=== PATIENT | male | born 1970 | race Caucasian/White ===

== ENCOUNTER → 2017-03-05 | Outpatient (CLI) | payer BC | END | disposition home or self-care (01) | LOC: C.LABSPEC 17:38 | PROVIDERS: ATTEND Podiatrist Primary Podiatric Medicine | DX: B35.1 Tinea unguium (principal) ==

== ENCOUNTER 2022-02-08 20:13 | Inpatient (IN) ==
--- NOTE | 2022-02-08 20:43 | Emergency Department Note ---
History of Present Illness General Chief complaint: Visual Disturbance Stated complaint: double vision Time Seen by Provider: 02/08/22 20:29 Source: patient History of Present Illness Provider complaint: Double vision Onset (ago): hour(s) Location: eyes, left and right Pain Consistency: + constant Quality: + other (Double vision with images vertically on top of each other) Relieved By: + other (Closing either eye) Associated symptoms: no chest pain, no cough, no fever/chills, no headaches, no nausea/vomiting, no shortness of breath or no weakness This is a 51-year-old male with a history of diabetes presenting with binocular diplopia starting at noon today. He states it is resolved when he closes either eye. He took a nap and woke at approximately 7 PM and he noticed the double vision was worse. He denies any other symptoms. He does have a history of Mnire's disease and has hearing loss from the right ear but denies any vertiginous symptoms. He has no ataxia. He has some trouble with his gait only because he is seeing double but otherwise denies disequilibrium. He has had no loss of visual downing. He denies any headache, fever, cough or cold symptoms, chest pain, shortness of breath, abdominal pain, vomiting, diarrhea or urinary symptoms. He has had no trouble with his speech, mentation or swallowing. He denies any prior history of stroke. Home Medications Medication Instructions Recorded Confirmed Type insulin glargine 100 unit/mL 35 unit SUBCUT HS 05/19/19 02/08/22 History subcutaneous solution (Lantus U-100 Insulin) pravastatin 40 mg tablet 40 mg PO HS 05/19/19 02/08/22 History insulin lispro 100 unit/mL 10 - 15 unit SUBCUT AC 02/08/22 02/08/22 History subcutaneous pen triamterene 37.5 1 cap PO QAM 02/08/22 02/08/22 History mg-hydrochlorothiazide 25 mg capsule Allergies Allergy/AdvReac Type Severity Reaction Status Date / Time Sulfa (Sulfonamide Allergy Hives Verified 02/08/22 20:45 Antibiotics) Past Med/Surg History Medical History (Updated 02/08/22 @ 21:59 by Harjinder Duarte MD) Asthma Chronic back pain Diabetes mellitus, type 2 GERD (gastroesophageal reflux disease) Hearing deficit Herniated disc Meniere's disease Vertigo LAST 2 MONTHS AGO Surgical History History of colonoscopy History of tooth extraction Family History Father Diabetes Brother Diabetes Social History Smoking Status: Never smoker Second Hand Exposure: No; Hx Alcohol Use: No Hx Substance Use: No Preferred Language: Slovenian Communication Ability: Effective Cloud Subject Matter Expert Required: No Beliefs That Will Affect Care: None Current Living Situation: Spouse Feels Safe at Home: Yes Assistive Devices: Glasses Review of Systems See HPI for pertinent positives & negatives. and A total of 10 systems reviewed and were otherwise negative Physical Exam Vital Signs Vital Signs - 24 hr 02/08/22 20:14 02/08/22 20:49 02/08/22 21:10 Temperature 36.8 C Temperature Source Temporal Artery Scan Pulse Rate 92 H 87 Pulse Rate [Apical] 86 Pulse Rate from SpO2 Sensor 87 Respiratory Rate 18 18 21 Respiratory Effort / Characteristics Non-Labored Spontaneous Non-Labored Spontaneous Respiratory Depth Normal Normal Respiratory Pattern Regular Blood Pressure 155/76 H Blood Pressure [Left Arm] 158/86 H Blood Pressure Mean 102 Blood Pressure Mean [Left Arm] 110 Blood Pressure Position Sitting Blood Pressure Position [Left Arm] Lying Pulse Oximetry 98 97 99 Oxygen Delivery Method Room Air Room Air Sepsis Recent Fever Within 48 Hours No Sepsis New/Unexplained Change in Mental Status No Sepsis Action Taken by Nursing No Action Required 02/08/22 21:20 02/08/22 21:30 Temperature Temperature Source Pulse Rate 82 85 Pulse Rate [Apical] Pulse Rate from SpO2 Sensor 82 87 Respiratory Rate 20 21 Respiratory Effort / Characteristics Respiratory Depth Respiratory Pattern Blood Pressure 140/85 Blood Pressure [Left Arm] Blood Pressure Mean 103 Blood Pressure Mean [Left Arm] Blood Pressure Position Blood Pressure Position [Left Arm] Pulse Oximetry 98 96 Oxygen Delivery Method Sepsis Recent Fever Within 48 Hours Sepsis New/Unexplained Change in Mental Status Sepsis Action Taken by Nursing Constitutional: Vital signs reviewed. Eyes: Pupils are equal round reactive to light. Conjunctiva are noninjected. Unremarkable nondilated funduscopic examination. ENT: Cochlear implant right side. Pharynx is clear without erythema or exudate. Mucous membranes are moist. Neck supple without meningeal signs. Respiratory: Clear to auscultation bilaterally. Breath sounds are equal bilaterally. Cardiovascular: Regular rate and rhythm. No rubs or gallops. GI: Soft, nondistended and nontender. Bowel sounds are present. Musculoskeletal: No peripheral edema. Integumentary: No cyanosis. or jaundice. Neurologic: The patient is awake and alert. Cranial nerves II-XII are intact. Motor is 5 out of 5 all extremities. Sensation is intact to light touch all extremities. Normal speech. No pronator drift. No limb ataxia. Normal gait. Normal visual downing tested by confrontation. Psychiatric: Normal affect. Not anxious appearing. Course Administered Medications Sodium Chloride (Nss) 500 mls @ 125 mls/hr IV .Q4H ISABELA Stop: 03/10/22 21:44 Last Admin: 02/08/22 21:38 Dose: 125 mls/hr Documented by: [id number] Discontinued Medications Aspirin (Aspirin 81 Mg Chew) 324 mg PO NOW STA Stop: 02/08/22 21:32 Last Admin: 02/08/22 21:37 Dose: 324 mg Documented by: [id number] Clopidogrel Bisulfate (Clopidogrel Bisulfate 75 Mg Tab) 75 mg PO NOW ONE Stop: 02/08/22 21:57 Last Admin: 02/08/22 22:00 Dose: 75 mg Documented by: [id number] Ioversol (Optiray 320 125ml) 120 ml IV ONCE ONE Stop: 02/08/22 21:01 Last Admin: 02/08/22 21:00 Dose: 120 ml Documented by: [id number] Medical Decision Making Differential Diagnosis Acute CVA, TIA, cranial nerve palsy, intracranial mass, intracranial hemorrhage Medical Records Attestation: I reviewed the patient's medical records. I did perform a limited focused review of portions of the patient's old chart on the electronic medical record. The patient has had no recent pertinent visits to this hospital. Home Medications Current Medication List: was personally reviewed by me Laboratory Data Attestation: I reviewed the patient's lab results. Result diagrams: 02/08/22 20:48 02/08/22 20:48 Lab Results 02/08/22 02/08/22 02/08/22 Range/Units 20:48 20:48 20:48 WBC 7.87 (4.8-10.8) K/uL RBC 4.89 (4.7-6.1) M/uL Hgb 15.8 (14.0-18.0) g/dL Hct 45.3 (42-52) % MCV 92.6 (80-100) fL MCH 32.3 (25-34) pg MCHC 34.9 (32-36) g/dL RDW Std Deviation 42.9 (36.4-46.3) fL RDW Coeff of Kylah 12.7 (11.5-14.5) % Plt Count 150 (130-400) K/uL MPV 11.9 H (7.4-10.4) fL Immature Gran % (Auto) 0.1 % Neut % (Auto) 47.5 % Lymph % (Auto) 44.9 % [place] % (Auto) 5.2 % Eos % (Auto) 2.0 % Baso % (Auto) 0.3 % Neut # (Auto) 3.74 (1.4-6.5) K/uL Lymph # (Auto) 3.53 H (1.2-3.4) K/uL [place] # (Auto) 0.41 (0.11-0.59) K/uL Eos # (Auto) 0.16 (0-0.5) K/uL Baso # (Auto) 0.02 (0-0.2) K/uL Immature Gran # (Auto) 0.01 (0.00-0.02) K/uL PT 10.1 (9.0-12.0) Seconds INR 0.9 (0.9-1.1) APTT 24.2 (21.0-31.0) Seconds PTT Ratio 0.9 Sodium 137 (136-145) mmol/L Potassium 3.4 L (3.5-5.1) mmol/L Chloride 99 (98-107) mmol/L Carbon Dioxide 32 (21-32) mmol/L Anion Gap 6 (3-11) BUN 23 (6-23) mg/dl Creatinine 1.77 H (0.6-1.4) mg/dl Est Cr Clr Drug Dosing 57.7 ml/min Est GFR ( Amer) 49.7 ml/min Est GFR (Non-Af Amer) 42.9 ml/min BUN/Creatinine Ratio 13.0 (10-20) Glucose 182 H (70-99(Fasting)) mg/dl POC Glucose (70-99) mg/dl Calcium 9.1 (8.5-10.1) mg/dl Magnesium 2.1 (1.7-2.4) mg/dl Total Bilirubin 0.7 (0.2-1.0) mg/dl AST 21 (13-39) U/L ALT 23 (7-52) U/L Alkaline Phosphatase 74 (34-104) U/L Troponin I High Sens 5.8 (0-20) pg/ml Total Protein 6.8 (6.0-8.3) gm/dl Albumin 4.5 (3.4-5.0) gm/dl Globulin 2.3 L (2.5-4.0) gm/dl Albumin/Globulin Ratio 2.0 (0.9-2) SARS-CoV-2, RNA, NAAT (NEGATIVE) Blood Type Antibody Screen 02/08/22 02/08/22 02/08/22 Range/Units 21:11 21:23 21:27 WBC (4.8-10.8) K/uL RBC (4.7-6.1) M/uL Hgb (14.0-18.0) g/dL Hct (42-52) % MCV (80-100) fL MCH (25-34) pg MCHC (32-36) g/dL RDW Std Deviation (36.4-46.3) fL RDW Coeff of Kylah (11.5-14.5) % Plt Count (130-400) K/uL MPV (7.4-10.4) fL Immature Gran % (Auto) % Neut % (Auto) % Lymph % (Auto) % [place] % (Auto) % Eos % (Auto) % Baso % (Auto) % Neut # (Auto) (1.4-6.5) K/uL Lymph # (Auto) (1.2-3.4) K/uL [place] # (Auto) (0.11-0.59) K/uL Eos # (Auto) (0-0.5) K/uL Baso # (Auto) (0-0.2) K/uL Immature Gran # (Auto) (0.00-0.02) K/uL PT (9.0-12.0) Seconds INR (0.9-1.1) APTT (21.0-31.0) Seconds PTT Ratio Sodium (136-145) mmol/L Potassium (3.5-5.1) mmol/L Chloride (98-107) mmol/L Carbon Dioxide (21-32) mmol/L Anion Gap (3-11) BUN (6-23) mg/dl Creatinine (0.6-1.4) mg/dl Est Cr Clr Drug Dosing ml/min Est GFR ( Amer) ml/min Est GFR (Non-Af Amer) ml/min BUN/Creatinine Ratio (10-20) Glucose (70-99(Fasting)) mg/dl POC Glucose 213 H (70-99) mg/dl Calcium (8.5-10.1) mg/dl Magnesium (1.7-2.4) mg/dl Total Bilirubin (0.2-1.0) mg/dl AST (13-39) U/L ALT (7-52) U/L Alkaline Phosphatase (34-104) U/L Troponin I High Sens (0-20) pg/ml Total Protein (6.0-8.3) gm/dl Albumin (3.4-5.0) gm/dl Globulin (2.5-4.0) gm/dl Albumin/Globulin Ratio (0.9-2) SARS-CoV-2, RNA, NAAT NEGATIVE (NEGATIVE) Blood Type O Positive Antibody Screen NEGATIVE Imaging Data Radiologist's Impression: Head CT 02/08/22 20:38 CT head/brain wo con CLINICAL HISTORY: 51 years-old Male with Stroke Like Symptoms. Acute strokelike symptoms with visual disturbances TECHNIQUE: Multiple axial CT images of the head were obtained without contrast. A dose lowering technique was utilized adhering to the principles of ALARA. COMPARISON: CTA head neck of same day, brain MRI 03/28/2014 FINDINGS: No acute intracranial hemorrhage, midline shift, intracranial mass, hydrocephalus, territorial ischemia or abnormal extra-axial collection. Streak artifact from a right-sided cochlear implant limits the study. Right-sided partial mastoidectomy. The calvarium is intact. Minimal mucosal thickening of the right maxillary sinus. Unremarkable soft tissues. IMPRESSION: 1. No acute intracranial abnormality identified. 2. Artifact from the patient's right-sided cochlear implant limits the study. ACT 112: Negative or not required by law. The above report was generated using voice recognition software. It may contain grammatical, syntax or spelling errors. Electronically signed by: Alfredo Fuentes M.D. 02/08/2022 9:07 PM Head CTA 02/08/22 20:38 CT angio neck with con, CT angio head w con CLINICAL HISTORY: 51 years-old Male with Stroke Like Symptoms. Acute strokelike symptoms COMPARISON STUDY: Head CT of same day TECHNIQUE: Following the IV administration of 120 mL of Optiray, CT angiogram of the head and neck was performed from the aortic arch to the skull apex. Images are reviewed in the axial, sagittal, and coronal planes. 3-D MIPS images are created and assessed. IV contrast was administered without complication. All measurements were calculated based on NASCET criteria. A dose lowering technique was utilized adhering to the principles of ALARA. CT DOSE: 1257.42 mGy.cm FINDINGS: Three-vessel morphology of the thoracic aortic arch. Patency of the innominate and imaged subclavian arteries. Study is mildly motion degraded. The common and internal carotid arteries are patent. The middle and anterior cerebral arteries are patent. The vertebral arteries, basilar and posterior cerebral arteries are widely patent. The cerebral venous sinuses are patent. There is no abnormal intracranial enhancement. Streak artifact from the patient's right-sided cochlear implant limits the study. Lung apices are clear. No pneumothorax. Mild polypoid mucosal thickening of the right maxillary sinus. Streak artifact from dental amalgam hardware. Degenerative changes of the imaged cervical spine. Right-sided partial mastoidectomy. IMPRESSION:Unremarkable CTA of the head and neck. ACT 112: Negative or not required by law. The above report was generated using voice recognition software. It may contain grammatical, syntax or spelling errors. Electronically signed by: Alfredo Fuentes M.D. 02/08/2022 9:15 PM Neck CTA 02/08/22 20:38 CT angio neck with con, CT angio head w con CLINICAL HISTORY: 51 years-old Male with Stroke Like Symptoms. Acute strokelike symptoms COMPARISON STUDY: Head CT of same day TECHNIQUE: Following the IV administration of 120 mL of Optiray, CT angiogram of the head and neck was performed from the aortic arch to the skull apex. Images are reviewed in the axial, sagittal, and coronal planes. 3-D MIPS images are created and assessed. IV contrast was administered without complication. All measurements were calculated based on NASCET criteria. A dose lowering technique was utilized adhering to the principles of ALARA. CT DOSE: 1257.42 mGy.cm FINDINGS: Three-vessel morphology of the thoracic aortic arch. Patency of the innominate and imaged subclavian arteries. Study is mildly motion degraded. The common and internal carotid arteries are patent. The middle and anterior cerebral arteries are patent. The vertebral arteries, basilar and posterior cerebral arteries are widely patent. The cerebral venous sinuses are patent. There is no abnormal intracranial enhancement. Streak artifact from the patient's right-sided cochlear implant limits the study. Lung apices are clear. No pneumothorax. Mild polypoid mucosal thickening of the right maxillary sinus. Streak artifact from dental amalgam hardware. Degenerative changes of the imaged cervical spine. Right-sided partial mastoidectomy. IMPRESSION:Unremarkable CTA of the head and neck. ACT 112: Negative or not required by law. The above report was generated using voice recognition software. It may contain grammatical, syntax or spelling errors. Electronically signed by: Alfredo Fuentes M.D. 02/08/2022 9:15 PM ECG Data Attestation: I personally reviewed and interpreted this ECG as follows: Indication: + other (Diplopia) Rate (beats per minute): 80 Rhythm: + normal sinus ECG [place]: + Normal ECG ST segments: no ST elevation ECG Findings: no PVCs MDM Narrative I did evaluate the patient as noted above. The patient is presenting with bilocular vertical diplopia. It started at noon today and got worse after he woke up from a nap. He is not an IV tPA candidate given the time course of events. I did, however, call a stroke alert. IV access was established. I did order a stat CT of the head and CT angiogram of the head and neck. I did review the images myself as well as the radiology report as described above. The angiograms are unremarkable. CT of the head does not show any acute process but it is somewhat limited due to streak artifact from his cochlear implant. I did place an order for continuous cardiac monitoring. The monitor showed normal sinus rhythm at a rate of 82 bpm. I did order and personally review the patient's 12-lead EKG as described above. He has no acute ischemic changes. I did order and review the patient's blood work as noted in the electronic medical record. CBC is unremarkable without leukocytosis or anemia. Electrolytes demonstrate a potassium of 3.4 but are otherwise unremarkable. His glucose is elevated at 182. LFTs are unremarkable. Creatinine is elevated at 1.77. I did discuss the test results with the patient. He states that his creatinine was last taken about a week ago and was normal. I did start him on normal saline IV. He denies having any urinary issues or flank pain. We are unable to reach the stroke neurologist at [place] in a timely fashion due to a large amount of stroke alerts at the same time. I therefore called Dr. Ho of neurology and discussed the case with her. She recommended the patient be treated with dual antiplatelet therapy and we obtain an MRI. I did order aspirin and Plavix for the patient. I did order an MRI. I did review the safety parameters for his cochlear implant based on the model number provided by his . I did fax him a copy of the parameters and the tech will make sure all the parameters are compatible with his implant so as not to damage it. I discuss case with Dr. Merino and the case liner. Impression & Plan Binocular vision disorder with diplopia, Elevated serum creatinine, Hyperglycemia Discharge Plan Visit Data Chief Complaint: Visual Disturbance Stated Complaint: double vision ED Provider: Harjinder Duarte Discharge Problem: Binocular vision disorder with diplopia, Elevated serum creatinine, Hyperglycemia Patient Disposition: Being Evaluated by Hospitalist Forms Stand Alone Forms: My [facility] Prescriptions Prescriptions: No Action Lantus U-100 Insulin 100 unit/mL Solution 35 unit SUBCUT HS RF: 0 pravastatin 40 mg Tablet 40 mg PO HS RF: 0 triamterene-hydrochlorothiazid 37.5-25 mg capsule 1 cap PO QAM RF: 0 insulin lispro 100 unit/mL insulin pen 10 - 15 unit SUBCUT AC RF: 0 Referrals Referrals: Tanja Jefferson MD [Primary Care Provider] -
[2022-02-08 21:00] LABS: Basophils # (auto) 0.02 K/uL (0-0.2); Basophils % (auto) 0.3 %; Eosinophils # (auto) 0.16 K/uL (0-0.5); Hematocrit (blood only) 45.3 % (42-52); Hemoglobin 15.8 g/dL (14.0-18.0); Immature Granulocytes # (auto) 0.01 K/uL (0.00-0.02); Immature Granulocytes % (auto) 0.1 %; Lymphocytes # (auto) 3.53 K/uL (1.2-3.4); Lymphocytes % (auto) 44.9 %; Mean Corpuscular Hemoglobin 32.3 pg (25-34); Mean Corpuscular Hgb Conc 34.9 g/dL (32-36); Mean Corpuscular Volume 92.6 fL (80-100); Mean Platelet Volume 11.9 fL (7.4-10.4); Monocytes # (auto) 0.41 K/uL (0.11-0.59); Monocytes % (auto) 5.2 %; Neutrophils # (auto) 3.74 K/uL (1.4-6.5); Neutrophils % (auto) 47.5 %; Platelet Count 150 K/uL (130-400); RDW Coefficient of Variation 12.7 % (11.5-14.5); RDW Standard Deviation 42.9 fL (36.4-46.3); Red Blood Count 4.89 M/uL (4.7-6.1); White Blood Count 7.87 K/uL (4.8-10.8)
[2022-02-08] MEDS ORDERED: OPTIRAY 320 125ml IV ONE (21:00)
--- NOTE | 2022-02-08 21:09 | CT Scan Report ---
CT head/brain wo con CLINICAL HISTORY: 51 years-old Male with Stroke Like Symptoms. Acute strokelike symptoms with visual disturbances TECHNIQUE: Multiple axial CT images of the head were obtained without contrast. A dose lowering tech nique was utilized adhering to the principles of ALARA. COMPARISON: CTA head neck of same day, brain MRI 03/28/2014 FINDINGS: No acute intracranial hemorrhage, midline shift, intracranial mass, hydrocephalus, territorial ischem ia or abnormal extra-axial collection. Streak artifact from a right-sided cochlear implant limits the study. Right-sided partial mastoidectomy. The calvarium is intact. Minimal mucosal thickening of the right maxillary sinus. Unremarkable soft tissues. IMPRESSION: 1. No acute intracranial abnormality identified. 2. Artifact from the patient's right-sided cochlear implant limits the study. ACT 112: Negative or not required by law. The above report was generated using voice recognition software. It may contain grammatical, syntax o r spelling errors. Electronically signed by: Alfredo Fuentes M.D. 02/08/2022 9:07 PM
[2022-02-08 21:10] LABS: INR 0.9 (0.9-1.1); Partial Thromboplastin Ratio 0.9; Partial Thromboplastin Time 24.2 Seconds (21.0-31.0); Prothrombin Time 10.1 Seconds (9.0-12.0)
--- NOTE | 2022-02-08 21:18 | CT Scan Report ---
CT angio neck with con, CT angio head w con CLINICAL HISTORY: 51 years-old Male with Stroke Like Symptoms. Acute strokelike symptoms COMPARISON STUDY: Head CT of same day TECHNIQUE: Following the IV administration of 120 mL of Optiray, CT angiogram of the head and neck wa s performed from the aortic arch to the skull apex. Images are reviewed in the axial, sagittal, and c oronal planes. 3-D MIPS images are created and assessed. IV contrast was administered without complic ation. All measurements were calculated based on NASCET criteria. A dose lowering technique was util ized adhering to the principles of ALARA. CT DOSE: 1257.42 mGy.cm FINDINGS: Three-vessel morphology of the thoracic aortic arch. Patency of the innominate and imaged subclavian arteries. Study is mildly motion degraded. The common and internal carotid arteries are patent. The m iddle and anterior cerebral arteries are patent. The vertebral arteries, basilar and posterior cerebr al arteries are widely patent. The cerebral venous sinuses are patent. There is no abnormal intracran ial enhancement. Streak artifact from the patient's right-sided cochlear implant limits the study. Lung apices are clear. No pneumothorax. Mild polypoid mucosal thickening of the right maxillary sinus . Streak artifact from dental amalgam hardware. Degenerative changes of the imaged cervical spine. Ri ght-sided partial mastoidectomy. IMPRESSION:Unremarkable CTA of the head and neck. ACT 112: Negative or not required by law. The above report was generated using voice recognition software. It may contain grammatical, syntax o r spelling errors. Electronically signed by: Alfredo Fuentes M.D. 02/08/2022 9:15 PM
[2022-02-08 21:21] LABS: Albumin Level 4.5 gm/dl (3.4-5.0); Bilirubin,Total 0.7 mg/dl (0.2-1.0); Calcium 9.1 mg/dl (8.5-10.1); Creatinine Clr Calc Pharmacy 57.7 ml/min; Est GFR (African American) 49.7 ml/min; Est GFR (Non-African American) 42.9 ml/min; Globulin 2.3 gm/dl (2.5-4.0); Magnesium 2.1 mg/dl (1.7-2.4); Potassium 3.4 mmol/L (3.5-5.1); Total Protein 6.8 gm/dl (6.0-8.3)
[2022-02-08 21:24] LABS: Troponin I High Sensitivity 5.8 pg/ml (0-20)
[2022-02-08] MEDS ORDERED: ASPIRIN 81 MG CHEW PO STA (21:31)
[2022-02-08] MEDS: SODIUM CHLORIDE 0.9% 500 ML IV SCH (21:38)
[2022-02-08] MEDS ORDERED: CLOPIDOGREL BISULFATE 75 MG TAB PO ONE (21:56)
--- NOTE | 2022-02-08 23:19 | History & Physical Report ---
Date of Service February 08, 2022 Assessment & Plan (1) Binocular vision disorder with diplopia: Plan: Binocular vertically displaced diplopia/vision loss left eye compared to right- Taking into account artifact due to cochlear implant on the right, imaging was negative for CVA. CT head without contrast, CTA head and neck, MRI brain were negative Pupils were equal round and reactive to light and accommodation, there was no Santana Mirian or reverse Santana Mirian pupil. Extraocular muscles were intact. Visual downing were normal. When each eye was covered individually, patient noted that his vision in his left eye was worse than his right, and notes that his vision was worse when he put his glasses on Vision in both eyes did improve significantly with pinhole testing, indicating at least in part of refractive error. Question the presence of central serous retinopathy or less likely corneal edema Anaplasmosis smear was negative, with antibody testing pending Lyme IgG testing was negative, but IgM returned equivocal findings Patient will be started on ceftriaxone 2 g IV daily, and Doxycycline 100 mg p.o. twice daily, with first dosing this evening. To be assessed by neurology in the a.m. Stroke without tPA order set completed, but suspect this is more likely an ocular process (2) Suspected Lyme disease: Plan: Empiric treatment as described above Western blot testing ordered and the results will need to be confirmed Empiric treatment for now as noted (3) Acute kidney injury: Plan: Creatinine 1.77 upon admission, with baseline per patient 1.1 He will be encouraged to take an oral liquids, and will be given IV fluids, NSS at 125 mils per hour, as well. We will retest laboratories in a.m. Hold triamterene HCTZ for now CK added, and normal at 183, making less likely diagnosis of rhabdomyolysis If creatinine remains elevated in a.m., would order imaging at that time (4) Diabetes mellitus, type 2: Plan: Glucose 182 upon admission For now, reduce Lantus from 35 to 20 units subcu at bedtime. Place on Accu-Cheks before meals and at bedtime with NovoLog coverage per scale Check hemoglobin A1c (5) Hyperlipidemia LDL goal <70: Plan: For now, increase pravastatin from 40 to 80 mg at bedtime (6) Meniere's disease: Plan: Mnire's disease status post cochlear implant in place- No noted issues (7) Cochlear implant in place: Plan: See above History of Present Illness Chief Complaint: The patient presents to the emergency department with complaint of vertical diplopia that began around noon today, with blurrier vision in the left eye, which is also new. Primary Care Provider: Tanja Jefferson MD The patient is a 51-year-old male with a past medical history including diabetes mellitus, hyperlipidemia and hypertension. He reports that his vision initially seemed blurry, and then later developed a binocular vertically displaced diplopia. He notes the vision in his left eye is worse and the image appears to be larger than the image in his right eye. He does have a cochlear implant in his right ear, associated with known Mnire's disease, in which he has had no problems with. He denies any loss of peripheral vision, and primarily report reports decreased vision when he look straight ahead in his left eye compared to the right. He has no other associated neurologic symptoms. He has not had the symptoms before. He denies any recent travels or sick exposures. He reports he has had some bites on his legs, but has not noted any ticks. Allergies Allergy/AdvReac Type Severity Reaction Status Date / Time Sulfa (Sulfonamide Allergy Hives Verified 02/08/22 20:45 Antibiotics) Home Medications Medication Instructions Recorded Confirmed Type insulin glargine 100 unit/mL 35 unit SUBCUT HS 05/19/19 02/08/22 History subcutaneous solution (Lantus U-100 Insulin) pravastatin 40 mg tablet 40 mg PO HS 05/19/19 02/08/22 History insulin lispro 100 unit/mL 10 - 15 unit SUBCUT AC 02/08/22 02/08/22 History subcutaneous pen triamterene 37.5 1 cap PO QAM 02/08/22 02/08/22 History mg-hydrochlorothiazide 25 mg capsule Past Med/Surg History Medical History (Updated 02/09/22 @ 03:56 by Gary Carnes MD) Asthma Chronic back pain Cochlear implant in place Diabetes mellitus, type 2 GERD (gastroesophageal reflux disease) Hearing deficit Herniated disc Hyperlipidemia LDL goal <70 Meniere's disease Vertigo LAST 2 MONTHS AGO Surgical History History of colonoscopy History of tooth extraction Family History Father Diabetes Brother Diabetes Social History Smoking Status: Never smoker Second Hand Exposure: No; Hx Alcohol Use: Yes Alcohol type: hard liquor Hx Substance Use: No Preferred Language: Tajik Communication Ability: Effective Television Anchor Required: No Beliefs That Will Affect Care: None Current Living Situation: Spouse Other Information That Helps Us Care for You: No Feels Safe at Home: Yes Safety Concerns: Feels Safe At This Time Assistive Devices: Glasses and Hearing Aid - Left Assistive Devices Comment: Choclear implant in right ear Review of Systems Review of Systems: The patient denies chest pain, palpitations, shortness of breath, dyspnea on exertion, cough, lower extremity swelling, sore throat, fevers, chills, sweats, weight change, fatigue, nausea, vomiting, diarrhea , constipation, abdominal pain, pelvic pain, blood in urine or stool, dysuria, urinary frequency or urgency, lightheadedness, dizziness, headache, memory loss, loss of consciousness, abnormal bruising or bleeding, imbalance, focal or generalized weakness, numbness or tingling in arms or legs, generalized arthralgias or myalgias, back or neck pain, or night sweats. The review of systems is otherwise negative other than for that already noted above, and at least 10 systems have been reviewed. Physical Exam Physical Exam: The patient is awake, alert and oriented 3, well developed and well nourished, normocephalic and atraumatic, lying in bed and in no acute distress. HEENT--PERRLA, negative Santana Mirian pupil. EOMI, mucous membranes and oropharynx dry. Neck--supple. No JVD. No bruits. Thyroid normal, trachea midline, no adenopathy. Heart--normal S1 and S2. No murmurs, rubs or gallops. Lungs--clear bilaterally, no respiratory distress, no accessory muscle use. Abdomen--normal bowel sounds and soft. Nontender. Nondistended, no hernias or m asses, no organomegaly. Extremities--no cyanosis or clubbing. No edema. There are good distal pulses b/l. Dermatologic--normal skin turgor, normal color, no abnormal lymph nodes, no rash. Neurologic--cranial nerves II through XII grossly intact. Ophthalmoscope exam shows normal sharp appearing disc margins, normal AV ratio, no hemorrhaging. Rheumatologic--normal range of motion. Psychiatric--normal affect. Results & Data Results & Data ([facility]) Vital Signs (Past 12 Hours) Vital Signs Temp Pulse Pulse Resp BP BP Pulse Ox 02/08/22 23:00 72 21 124/65 02/08/22 22:50 77 21 97 02/08/22 22:40 69 17 97 02/08/22 22:30 76 22 127/74 95 02/08/22 22:20 75 23 96 02/08/22 22:10 78 17 96 02/08/22 22:00 73 22 02/08/22 21:50 80 17 97 02/08/22 21:40 89 18 97 02/08/22 21:30 85 21 140/85 96 02/08/22 21:20 82 20 98 02/08/22 21:10 87 21 99 02/08/22 20:49 86 18 158/86 H 97 02/08/22 20:14 36.8 C 92 H 18 155/76 H 98 Laboratory Results Laboratory Results WBC 7.87 K/uL (4.8-10.8) 02/08/22 20:48 RBC 4.89 M/uL (4.7-6.1) 02/08/22 20:48 Hgb 15.8 g/dL (14.0-18.0) 02/08/22 20:48 Hct 45.3 % (42-52) 02/08/22 20:48 MCV 92.6 fL (80-100) 02/08/22 20:48 MCH 32.3 pg (25-34) 02/08/22 20:48 MCHC 34.9 g/dL (32-36) 02/08/22 20:48 RDW Std Deviation 42.9 fL (36.4-46.3) 02/08/22 20:48 RDW Coeff of Kylah 12.7 % (11.5-14.5) 02/08/22 20:48 Plt Count 150 K/uL (130-400) 02/08/22 20:48 MPV 11.9 fL (7.4-10.4) H 02/08/22 20:48 Immature Gran % (Auto) 0.1 % 02/08/22 20:48 Neut % (Auto) 47.5 % 02/08/22 20:48 Lymph % (Auto) 44.9 % 02/08/22 20:48 [place] % (Auto) 5.2 % 02/08/22 20:48 Eos % (Auto) 2.0 % 02/08/22 20:48 Baso % (Auto) 0.3 % 02/08/22 20:48 Neut # (Auto) 3.74 K/uL (1.4-6.5) 02/08/22 20:48 Lymph # (Auto) 3.53 K/uL (1.2-3.4) H 02/08/22 20:48 [place] # (Auto) 0.41 K/uL (0.11-0.59) 02/08/22 20:48 Eos # (Auto) 0.16 K/uL (0-0.5) 02/08/22 20:48 Baso # (Auto) 0.02 K/uL (0-0.2) 02/08/22 20:48 Immature Gran # (Auto) 0.01 K/uL (0.00-0.02) 02/08/22 20:48 PT 10.1 Seconds (9.0-12.0) 02/08/22 20:48 INR 0.9 (0.9-1.1) 02/08/22 20:48 APTT 24.2 Seconds (21.0-31.0) 02/08/22 20:48 PTT Ratio 0.9 02/08/22 20:48 Sodium 137 mmol/L (136-145) 02/08/22 20:48 Potassium 3.4 mmol/L (3.5-5.1) L 02/08/22 20:48 Chloride 99 mmol/L (98-107) 02/08/22 20:48 Carbon Dioxide 32 mmol/L (21-32) 02/08/22 20:48 Anion Gap 6 (3-11) 02/08/22 20:48 BUN 23 mg/dl (6-23) 02/08/22 20:48 Creatinine 1.77 mg/dl (0.6-1.4) H 02/08/22 20:48 Est Cr Clr Drug Dosing 57.7 ml/min 02/08/22 20:48 Est GFR ( Amer) 49.7 ml/min 02/08/22 20:48 Est GFR (Non-Af Amer) 42.9 ml/min 02/08/22 20:48 BUN/Creatinine Ratio 13.0 (10-20) 02/08/22 20:48 Glucose 182 mg/dl (70-99(Fasting)) H 02/08/22 20:48 POC Glucose 213 mg/dl (70-99) H 02/08/22 21:23 Calcium 9.1 mg/dl (8.5-10.1) 02/08/22 20:48 Magnesium 2.1 mg/dl (1.7-2.4) 02/08/22 20:48 Total Bilirubin 0.7 mg/dl (0.2-1.0) 02/08/22 20:48 AST 21 U/L (13-39) 02/08/22 20:48 ALT 23 U/L (7-52) 02/08/22 20:48 Alkaline Phosphatase 74 U/L (34-104) 02/08/22 20:48 Total Creatine Kinase 183 U/L (30-223) 02/08/22 20:48 Troponin I High Sens 5.8 pg/ml (0-20) 02/08/22 20:48 Total Protein 6.8 gm/dl (6.0-8.3) 02/08/22 20:48 Albumin 4.5 gm/dl (3.4-5.0) 02/08/22 20:48 Globulin 2.3 gm/dl (2.5-4.0) L 02/08/22 20:48 Albumin/Globulin Ratio 2.0 (0.9-2) 02/08/22 20:48 Anaplasma Smear See Comment 02/08/22 20:48 Lyme Disease IgG Ab Negative (Negative) 02/08/22 20:48 Lyme Disease IgM Ab Equivocal (Negative) A 02/08/22 20:48 SARS-CoV-2, RNA, NAAT NEGATIVE (NEGATIVE) 02/08/22 21:27 Blood Type O Positive 02/08/22 21:11 Antibody Screen NEGATIVE 02/08/22 21:[address] 02/08/22 20:38 CT head/brain wo con CLINICAL HISTORY: 51 years-old Male with Stroke Like Symptoms. Acute strokelike symptoms with visual disturbances TECHNIQUE: Multiple axial CT images of the head were obtained without contrast. A dose lowering technique was utilized adhering to the principles of ALARA. COMPARISON: CTA head neck of same day, brain MRI 03/28/2014 FINDINGS: No acute intracranial hemorrhage, midline shift, intracranial mass, hydrocephalus, territorial ischemia or abnormal extra-axial collection. Streak artifact from a right-sided cochlear implant limits the study. Right-sided partial mastoidectomy. The calvarium is intact. Minimal mucosal thickening of the right maxillary sinus. Unremarkable soft tissues. IMPRESSION: 1. No acute intracranial abnormality identified. 2. Artifact from the patient's right-sided cochlear implant limits the study. ACT 112: Negative or not required by law. The above report was generated using voice recognition software. It may contain grammatical, syntax or spelling errors. Electronically signed by: Alfredo Fuentes M.D. 02/08/2022 9:07 PM Head CTA 02/08/22 20:38 CT angio neck with con, CT angio head w con CLINICAL HISTORY: 51 years-old Male with Stroke Like Symptoms. Acute strokelike symptoms COMPARISON STUDY: Head CT of same day TECHNIQUE: Following the IV administration of 120 mL of Optiray, CT angiogram of the head and neck was performed from the aortic arch to the skull apex. Images are reviewed in the axial, sagittal, and coronal planes. 3-D MIPS images are created and assessed. IV contrast was administered without complication. All measurements were calculated based on NASCET criteria. A dose lowering technique was utilized adhering to the principles of ALARA. CT DOSE: 1257.42 mGy.cm FINDINGS: Three-vessel morphology of the thoracic aortic arch. Patency of the innominate and imaged subclavian arteries. Study is mildly motion degraded. The common and internal carotid arteries are patent. The middle and anterior cerebral arteries are patent. The vertebral arteries, basilar and posterior cerebral arteries are widely patent. The cerebral venous sinuses are patent. There is no abnormal intracranial enhancement. Streak artifact from the patient's right-sided cochlear implant limits the study. Lung apices are clear. No pneumothorax. Mild polypoid mucosal thickening of the right maxillary sinus. Streak artifact from dental amalgam hardware. Degenerative changes of the imaged cervical spine. Right-sided partial mastoidectomy. IMPRESSION:Unremarkable CTA of the head and neck. ACT 112: Negative or not required by law. The above report was generated using voice recognition software. It may contain grammatical, syntax or spelling errors. Electronically signed by: Alfredo Fuentes M.D. 02/08/2022 9:15 PM Neck CTA 02/08/22 20:38 CT angio neck with con, CT angio head w con CLINICAL HISTORY: 51 years-old Male with Stroke Like Symptoms. Acute strokelike symptoms COMPARISON STUDY: Head CT of same day TECHNIQUE: Following the IV administration of 120 mL of Optiray, CT angiogram of the head and neck was performed from the aortic arch to the skull apex. Images are reviewed in the axial, sagittal, and coronal planes. 3-D MIPS images are created and assessed. IV contrast was administered without complication. All measurements were calculated based on NASCET criteria. A dose lowering technique was utilized adhering to the principles of ALARA. CT DOSE: 1257.42 mGy.cm FINDINGS: Three-vessel morphology of the thoracic aortic arch. Patency of the innominate and imaged subclavian arteries. Study is mildly motion degraded. The common and internal carotid arteries are patent. The middle and anterior cerebral arteries are patent. The vertebral arteries, basilar and posterior cerebral arteries are widely patent. The cerebral venous sinuses are patent. There is no abnormal intracranial enhancement. Streak artifact from the patient's right-sided cochlear implant limits the study. Lung apices are clear. No pneumothorax. Mild polypoid mucosal thickening of the right maxillary sinus. Streak artifact from dental amalgam hardware. Degenerative changes of the imaged cervical spine. Right-sided partial mastoidectomy. IMPRESSION:Unremarkable CTA of the head and neck. ACT 112: Negative or not required by law. The above report was generated using voice recognition software. It may contain grammatical, syntax or spelling errors. Electronically signed by: Alfredo Fuentes M.D. 02/08/2022 9:15 PM Diagnostic Findings [facility] Patient: VIVI CABRAL (Male) : 66 Status: ER Date: 02/09/22 00:01 Room #: History: cochlear nucleus implant [id number], scanned in normal mode in transmit/receive head coil This is a 51-year-old male with a history of diabetes presenting with binocular diplopia starting at noon today. He states it is resolved when he closes either eye. He took a nap and woke at approximately 7 PM and he noticed the double vision was worse. He denies any other symptoms. [place] does have a history of Mnire's disease and has hearing loss from the right ear but denies any vertiginous symptoms. He has no ataxia. He has some trouble with his gait only because he is seeing double but otherwise denies disequilibrium. He has had no loss of visual downing. He denies any headache, fever, cough or cold symptoms, chest pain, shortness of breath, abdominal pain, vomiting, diarrhea or urinary symptoms. He has had no trouble with his speech, mentation or swallowing. He denies any prior history of stroke. Slices: 256 Priors: Tech: Junior Siegel @ [id number] Exams: MRI HEAD Contrast: IV Amt: 9 ml Gadavist, no adverse reactions Accession Numbers: [id number] Referring Physician: REFERRED SELF Preliminary Findings Only See Final Report For Complete Findings MRI HEAD : Comparison: CT head earlier same day Artifact from patient's cochlear implant severely limits evaluation, particularly on diffusion-weighted and T2* GRE images. Cannot exclude acute infarct on basis of this exam. No evidence of intracranial abnormality or abnormal enhancement, allowing for the artifact. Radiologist: Alek Hale MD Study ready at 00:08 and initial results transmitted at 00:31 *This report constitutes a preliminary interpretation only. Non-acute findings felt to be unrelated to the clinical presentation may not be discussed in this report. The study will be interpreted and a final report will be gene rated by the local Radiologist the following shift. To reach the [facility] radiology department call [phone]. If a discrepancy is found between the preliminary and final in terpretations of this study, please notify us via our Client Portal at [email or web address], under QA Exams. You can also fax this report with a description of the discrepancy, or include the final report, to our daytime fax number [phone]. If faxing, please indicate the severity of discrepancy using one of the following categories: [ ] 1 - Agree/Informational [ ] 2 - Unlikely to Affect Management [ ] 3 - Possible Eventual Change of Management [ ] 4 - Probable Immediate Change of Management For all other patient related information, please fax us at [phone]. [id number] Code Status & VTE Plan Code Status Full code VTE Prophylaxis Plan VTE Prophylaxis will be ordered: Yes PG Care Time/CCT Total # of Minutes Spent Total Time Spent with Patient: Total time spent is greater than 50% in coordination of care (as documented) at patient's floor/unit and/or counseling patient: Coding Level of Care Code 12802 Initial Inpt Care Lvl 3 Diagnoses Binocular vision disorder with diplopia H53.2 Acute kidney injury N17.9 Hyperlipidemia LDL goal <70 E78.5 Meniere's disease H81.[address] Z96.21 Diabetes mellitus, type 2 E11.9 Suspected Lyme disease R68.89
[2022-02-08] MEDS ORDERED: GADOBUTROL 10ML VIAL IV ONE (23:49)
[2022-02-09 00:20] LABS: Lyme Ab IgG w/WB Rflx Negative (Negative)
[2022-02-09 01:05] LABS: Lyme Ab IgM w/WB Rflx Equivocal (Negative)
[2022-02-09] MEDS ORDERED: DOXYCYCLINE HYCLATE 100 MG CAP PO STA (01:11)
[2022-02-09] MEDS ORDERED: GLUCOSE 10 TABS/TUBE PO PRN (01:26)
[2022-02-09] MEDS ORDERED: PHARMACIST DISCHARGE MED REC CONSULT PRN (01:26)
[2022-02-09] MEDS ORDERED: ACETAMINOPHEN 325 MG TAB PO PRN (01:26)
[2022-02-09] MEDS ORDERED: GLUCOSE 40% GEL 15 GM TUBE PO PRN (01:26)
[2022-02-09] MEDS ORDERED: ONDANSETRON INJ 2 MG/ML 2 ML VIAL IV PRN (01:26)
[2022-02-09] MEDS ORDERED: CARBOHYDRATES FOR HYPOGLYCEMIA PO PRN (01:26)
[2022-02-09] MEDS ORDERED: GLUCAGON FOR INJ 1 MG VIAL SQ PRN (01:26)
[2022-02-09] MEDS ORDERED: DEXTROSE 50% 50 ML SYRINGE IV PRN (01:26)
[2022-02-09] MEDS: SODIUM CHLORIDE 0.9% 500 ML IV SCH ×5 (01:40→19:44)
[2022-02-09] MEDS: cefTRIAXone SODIUM 2,000 MG in DEXTROSE 5% 50 ML IV SCH (01:46)
[2022-02-09] MEDS ORDERED: INSULIN GLARGINE SOLOSTAR 100 UNITS/ML 3 ML PEN SQ STA (02:29)
--- NOTE | 2022-02-09 06:24 | Magnetic Resonance Report ---
MRI OF THE BRAIN COMBO CLINICAL HISTORY: Diplopia. COMPARISON STUDY: CT of the brain dated 02/08/2022. TECHNIQUE: MRI of the brain was performed utilizing various T1 and T2-weighted sequences in the axial , sagittal, and coronal planes. Contrast-enhanced sequences were acquired following the administratio n of 9 cc of Gadavist. The examination is severely degraded by susceptibility artifact from metallic device overlying the right convexity. FINDINGS: Brain parenchyma: The brain parenchyma is normal in appearance. There is no hemorrhage or mass effect . There is no restricted diffusion identified typical for acute ischemia. Note that the right hemisph ere is complete obscured on the diffusion-weighted sequence. There is no evidence of enhancing mass l esion on the postcontrast images. Yip-white matter differentiation is preserved. No extra-axial flui d collection is seen. The cerebellar tonsils are normal in configuration. Ventricles, sulci, and cisterns: Normal in configuration. Pituitary and sella: Unremarkable. Intracranial vasculature: Normal flow voids are maintained at the skull base. Orbits: The bony orbits are grossly intact. Orbital contents are normal in appearance. Sinuses and mastoids: There is moderate mucosal thickening in the right maxillary antrum. The remaini ng paranasal sinuses are clear. The left mastoid air cells are well pneumatized. The right mastoid ai r cells cannot be evaluated. Calvarium: Unremarkable. Cervical cord: Partially visualized cervical spinal cord is normal in morphology and signal intensity . IMPRESSION: No acute intracranial abnormality is identified noting a severely degraded examination. A n acute infarct cannot be excluded on this examination. Clinical correlation will be required. ACT 112: Negative or not required by law. Electronically signed by: Duncan Thompson M.D. 02/09/2022 6:21 AM
[2022-02-09 07:41] LABS: Basophils # (auto) 0.01 K/uL (0-0.2); Basophils % (auto) 0.2 %; Eosinophils # (auto) 0.12 K/uL (0-0.5); Hematocrit (blood only) 41.7 % (42-52); Hemoglobin 14.6 g/dL (14.0-18.0); Immature Granulocytes # (auto) 0.01 K/uL (0.00-0.02); Immature Granulocytes % (auto) 0.2 %; Lymphocytes # (auto) 2.19 K/uL (1.2-3.4); Lymphocytes % (auto) 36.6 %; Mean Corpuscular Hemoglobin 32.2 pg (25-34); Mean Corpuscular Volume 92.1 fL (80-100); Monocytes % (auto) 6.7 %; Neutrophils # (auto) 3.26 K/uL (1.4-6.5); Neutrophils % (auto) 54.3 %; Platelet Count 145 K/uL (130-400); RDW Coefficient of Variation 12.8 % (11.5-14.5); RDW Standard Deviation 43.2 fL (36.4-46.3); Red Blood Count 4.53 M/uL (4.7-6.1); White Blood Count 5.99 K/uL (4.8-10.8)
[2022-02-09 07:57] LABS: Partial Thromboplastin Ratio 0.9; Prothrombin Time 10.4 Seconds (9.0-12.0)
[2022-02-09 08:10] LABS: Albumin Globulin Ratio 1.9 (0.9-2); Albumin Level 3.9 gm/dl (3.4-5.0); BUN Creatinine Ratio 17.9 (10-20); Bilirubin,Total 0.5 mg/dl (0.2-1.0); Calcium 8.4 mg/dl (8.5-10.1); Chol HDL Ratio 2.9 (0-5); Creatinine Clr Calc Pharmacy 76.2 ml/min; Est GFR (African American) 69.6 ml/min; Est GFR (Non-African American) 60.1 ml/min; Globulin 2.1 gm/dl (2.5-4.0)
[2022-02-09] MEDS: ASPIRIN 81 MG ECTAB PO SCH (08:22)
[2022-02-09] MEDS: INSULIN ASPART PER UNIT SC SCH ×4 (08:25→20:50)
[2022-02-09] MEDS ORDERED: DOXYCYCLINE HYCLATE 100 MG CAP PO SCH (09:00)
[2022-02-09] MEDS ORDERED: CLOPIDOGREL BISULFATE 75 MG TAB PO SCH (09:00)
--- NOTE | 2022-02-09 12:41 | XCELERA ---
[id number]
[2022-02-09 12:59] LABS: C Reactive Protein < 0.50 mg/dl (0-0.5); Creatine Kinase 133 U/L (30-223)
[2022-02-09] MEDS ORDERED: SODIUM CHLORIDE 0.9% 1000ML 1,000 ML IV SCH (20:00)
--- NOTE | 2022-02-09 20:36 | Hospitalist Progress Note ---
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 Specifically it appears he has subtle CN 4 impairment on the right. This would make sense as this is a common vasculopathic cranial neuropathy in the setting of cardiovascular risk factors such as diabetes, hyperlipidemia, etc. Turning his head to the left and looking left worsens his double vision which is c/w CN 4 impairment. He also mentioned that looking downward worsens the symptoms. Reading is quite difficulty right now - typically induces the double vision. Fortunately covering either eye extinguishes his symptoms. I don't see any other CN palsy/impairment or any other neurological finding on exam. 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 MRI brain noted to be negative for acute findings. CTA head/neck with stenosis, aneurysm or dissection. Echo without thrombus or obvious PFO. Tele without a.fib/flutter. With respect to blurry vision his high sugars could be contributing. I spoke with 2 separate ophthalmologists today by phone and his exam findings & clinical history were felt to be highly suggestive of CN 4 palsy. He will need to see ophthalmology within 1-2 days of discharge for full eye exam, prism cover test, etc. Dr Valdivia reported he could see Dr Zafar peace post-d/c. In meantime asa 81mg daily has been added for secondary prevention, continue statin agent, and will have [facility] [place] tomorrow for consult (they are not available today). Will d/c the ordered plavix (he was not taking any antiplatelet agent at home pre-admission). Pt already evaluated by PT/OT. No speech therapy required. (2) Suspected Lyme disease: Plan: Question of early stage Lyme (equivocal IgM, negative IgG). Typically with MANAGER [employer] lyme the IgG is positive, however. Lyme typically causes a Hatfield's palsy but theoretically could infect any cranial nerve. [id number] Lyme rarely impacts the other CN's outside of CN VII. With that side reasonable to continue IV rocephin while inpatient, send home with KEEGAN ramos, and await Lyme western blot & anaplasmosis. (3) Acute kidney injury: Plan: Creatinine 1.77 upon admission, with baseline per patient 1.1 Hold triamterene HCTZ Cr already improved with IV fluids overnight to 1.3 Etiology not full certain but suspect pre-renal (glucose was high upon admission lending itself to dehydration) Cont IV fluids; can reduce to 75cc/hr Obtain u/a to check for casts CPK wnl (4) Diabetes mellitus, type 2: Plan: a1c pending pt states last a1c was 7.1% increase lantus to 30 units HS tonight tighten carb ratio to 1:4 (he uses this ratio at home) tighten correction BSGs improved throughout the day (5) Hyperlipidemia LDL goal <70: Plan: Pravastatin increased from 40 to 80 mg at bedtime by admission MD Consider changing the pravastatin to crestor or lipitor will d/w patient (6) Meniere's disease: Plan: No noted issues at this time I don't believe there is any association of current symptoms with his Meniere's (7) Cochlear implant in place: Plan: noted Plan: DVT proph - if he stays beyond tomorrow will add chemical means updated at bedside questions answered hopeful for d/c home tomorrow following neurology eval and setting up post-d/c appts Admission and Anticipated Discharge Date Admission Date: February 08, 2022 Subjective tele stable overnight Dr Stephen continues to have intermittent vertical double vision was constant much of the evening last night, but since awakening it is now coming/going when he uses his glasses they don't correct his vision - vision continues to be blurry vision is worse L>R covering either eye extinguishes the double vision with turning the head to the left the double vision is provoked/worsened by such head turning to the right does not provoke the double vision denies vertigo, ataxia, sensory loss, focal motor weakness, facial droop, dysarthria/aphasia, dysphagia, facial sensory loss or impairment he has a mild, slight headache over the right forehead/behind the eye which is unusual for him (rarely gets headaches unless he is ill) denies any recent travel, sick contacts, or illnesses denies any fevers, chills, cough/congestion Review of Systems Review of Systems: gen - no anorexia cv - no cp pulm - no cough or dyspnea GI - no nausea or emesis or pain musculo - no myalgias Physical Exam Physical Exam: gen - WD, WN, no acute distress, sitting comfortably in bed face - no droop HENT - cochlear implant right side of head; MMM, no oral cavity lesions; tongue midline; nose clear eyes - PERRL, anicteric sclera; with extraocular movements - no obvious palsy noted; no ptosis; no nystagmus vertical or horizontal; ?slight decrease in full excursion of lateral rectus muscle on right but this is questionable neck - no lymph nodes or mass, supple heart - RRR, s1 s2, no murmur lungs - CTA b/l abd - soft NT ND BS+ ext - no edema, pulses 2+ b/l neuro - strength 5/5 x 4 exts; gait not tested; finger/nose/finger manuever without ataxia b/l hands; no sensory impairment to light touch x 4 exts; DTRs upper and lower extremities 2+ b/l CN - 3-12 initially seemed intact; Dr Stephen astutely recorded himself on his cell phone doing a head tilt (flexion/extension of head looking straight forward); with doing such there was finally a noticeable defect -- it appeared that looking straight that the right eye pupil was turned upwards and slightly outward (hypertropia and extorsion) suggestive of CN 4 palsy skin - no rash Results & Data Results & Data ([facility]) Vital Signs (Past 12 Hours) Vital Signs Temp Pulse Resp BP Pulse Ox 02/09/22 19:30 36.4 C L 63 16 126/65 98 02/09/22 16:25 36.7 C 18 119/77 98 02/09/22 11:41 36.3 C L 64 14 109/62 97 Laboratory Results Laboratory Results - last 24 hr 02/08/22 02/08/22 02/08/22 20:48 20:48 20:48 WBC 7.87 RBC 4.89 Hgb 15.8 Hct 45.3 MCV 92.6 MCH 32.3 MCHC 34.9 RDW Std Deviation 42.9 RDW Coeff of Kylah 12.7 Plt Count 150 MPV 11.9 H Immature Gran % (Auto) 0.1 Neut % (Auto) 47.5 Lymph % (Auto) 44.9 [place] % (Auto) 5.2 Eos % (Auto) 2.0 Baso % (Auto) 0.3 Neut # (Auto) 3.74 Lymph # (Auto) 3.53 H [place] # (Auto) 0.41 Eos # (Auto) 0.16 Baso # (Auto) 0.02 Immature Gran # (Auto) 0.01 ESR PT 10.1 INR 0.9 APTT 24.2 PTT Ratio 0.9 Sodium 137 Potassium 3.4 L Chloride 99 Carbon Dioxide 32 Anion Gap 6 BUN 23 Creatinine 1.77 H Est Cr Clr Drug Dosing 57.7 Est GFR ( Amer) 49.7 Est GFR (Non-Af Amer) 42.9 BUN/Creatinine Ratio 13.0 Glucose 182 H POC Glucose Estimat Average Glucose Hemoglobin A1c Calcium 9.1 Magnesium 2.1 Total Bilirubin 0.7 AST 21 ALT 23 Alkaline Phosphatase 74 Total Creatine Kinase Troponin I High Sens 5.8 C-Reactive Protein Total Protein 6.8 Albumin 4.5 Globulin 2.3 L Albumin/Globulin Ratio 2.0 Triglycerides Cholesterol LDL Cholesterol, Calc VLDL Cholesterol, Calc HDL Cholesterol Cholesterol/HDL Ratio TSH Acetylchol Rcpt Block Ab Acetylchol Rcpt Bind Ab Anaplasma Smear A. phagocytophilum DNA Lyme Disease IgG Ab Lyme IgG (Western Blot) Lyme IgG 18 kDa Band Lyme IgG 23 kDa Band Lyme IgG 28 kDa Band Lyme IgG 30 kDa Band Lyme IgG 39 kDa Band Lyme IgG 41 kDa Band Lyme IgG 45 kDa Band Lyme IgG 58 kDa Band Lyme IgG 66 kDa Band Lyme IgG 93 kDa Band Lyme IgM Ab (WB) Lyme Disease IgM Ab Lyme IgM 23 kDa Band Lyme IgM 39 kDa Band Lyme IgM 41 kDa Band SARS-CoV-2, RNA, NAAT Blood Type Antibody Screen 02/08/22 02/08/22 02/08/22 20:48 20:48 20:48 WBC RBC Hgb Hct MCV MCH MCHC RDW Std Deviation RDW Coeff of Kylah Plt Count MPV Immature Gran % (Auto) Neut % (Auto) Lymph % (Auto) [place] % (Auto) Eos % (Auto) Baso % (Auto) Neut # (Auto) Lymph # (Auto) [place] # (Auto) Eos # (Auto) Baso # (Auto) Immature Gran # (Auto) ESR PT INR APTT PTT Ratio Sodium Potassium Chloride Carbon Dioxide Anion Gap BUN Creatinine Est Cr Clr Drug Dosing Est GFR ( Amer) Est GFR (Non-Af Amer) BUN/Creatinine Ratio Glucose POC Glucose Estimat Average Glucose Hemoglobin A1c Calcium Magnesium Total Bilirubin AST ALT Alkaline Phosphatase Total Creatine Kinase 183 Troponin I High Sens C-Reactive Protein Total Protein Albumin Globulin Albumin/Globulin Ratio Triglycerides Cholesterol LDL Cholesterol, Calc VLDL Cholesterol, Calc HDL Cholesterol Cholesterol/HDL Ratio TSH Acetylchol Rcpt Block Ab Acetylchol Rcpt Bind Ab Anaplasma Smear See Comment A. phagocytophilum DNA Lyme Disease IgG Ab Negative Lyme IgG (Western Blot) Lyme IgG 18 kDa Band Lyme IgG 23 kDa Band Lyme IgG 28 kDa Band Lyme IgG 30 kDa Band Lyme IgG 39 kDa Band Lyme IgG 41 kDa Band Lyme IgG 45 kDa Band Lyme IgG 58 kDa Band Lyme IgG 66 kDa Band Lyme IgG 93 kDa Band Lyme IgM Ab (WB) Lyme Disease IgM Ab Equivocal A Lyme IgM 23 kDa Band Lyme IgM 39 kDa Band Lyme IgM 41 kDa Band SARS-CoV-2, RNA, NAAT Blood Type Antibody Screen 02/08/22 02/08/22 02/08/22 20:48 20:48 21:11 WBC RBC Hgb Hct MCV MCH MCHC RDW Std Deviation RDW Coeff of Kylah Plt Count MPV Immature Gran % (Auto) Neut % (Auto) Lymph % (Auto) [place] % (Auto) Eos % (Auto) Baso % (Auto) Neut # (Auto) Lymph # (Auto) [place] # (Auto) Eos # (Auto) Baso # (Auto) Immature Gran # (Auto) ESR PT INR APTT PTT Ratio Sodium Potassium Chloride Carbon Dioxide Anion Gap BUN Creatinine Est Cr Clr Drug Dosing Est GFR ( Amer) Est GFR (Non-Af Amer) BUN/Creatinine Ratio Glucose POC Glucose Estimat Average Glucose Hemoglobin A1c Calcium Magnesium Total Bilirubin AST ALT Alkaline Phosphatase Total Creatine Kinase Troponin I High Sens C-Reactive Protein Total Protein Albumin Globulin Albumin/Globulin Ratio Triglycerides Cholesterol LDL Cholesterol, Calc VLDL Cholesterol, Calc HDL Cholesterol Cholesterol/HDL Ratio TSH Acetylchol Rcpt Block Ab Acetylchol Rcpt Bind Ab Anaplasma Smear A. phagocytophilum DNA Pending Lyme Disease IgG Ab Lyme IgG (Western Blot) Pending Lyme IgG 18 kDa Band Pending Lyme IgG 23 kDa Band Pending Lyme IgG 28 kDa Band Pending Lyme IgG 30 kDa Band Pending Lyme IgG 39 kDa Band Pending Lyme IgG 41 kDa Band Pending Lyme IgG 45 kDa Band Pending Lyme IgG 58 kDa Band Pending Lyme IgG 66 kDa Band Pending Lyme IgG 93 kDa Band Pending Lyme IgM Ab (WB) Pending Lyme Disease IgM Ab Lyme IgM 23 kDa Band Pending Lyme IgM 39 kDa Band Pending Lyme IgM 41 kDa Band Pending SARS-CoV-2, RNA, NAAT Blood Type O Positive Antibody Screen NEGATIVE 02/08/22 02/08/22 02/09/22 21:23 21:27 07:16 WBC RBC Hgb Hct MCV MCH MCHC RDW Std Deviation RDW Coeff of Kylah Plt Count MPV Immature Gran % (Auto) Neut % (Auto) Lymph % (Auto) [place] % (Auto) Eos % (Auto) Baso % (Auto) Neut # (Auto) Lymph # (Auto) [place] # (Auto) Eos # (Auto) Baso # (Auto) Immature Gran # (Auto) ESR PT INR APTT PTT Ratio Sodium Potassium Chloride Carbon Dioxide Anion Gap BUN Creatinine Est Cr Clr Drug Dosing Est GFR ( Amer) Est GFR (Non-Af Amer) BUN/Creatinine Ratio Glucose POC Glucose 213 H 176 H Estimat Average Glucose Hemoglobin A1c Calcium Magnesium Total Bilirubin AST ALT Alkaline Phosphatase Total Creatine Kinase Troponin I High Sens C-Reactive Protein Total Protein Albumin Globulin Albumin/Globulin Ratio Triglycerides Cholesterol LDL Cholesterol, Calc VLDL Cholesterol, Calc HDL Cholesterol Cholesterol/HDL Ratio TSH Acetylchol Rcpt Block Ab Acetylchol Rcpt Bind Ab Anaplasma Smear A. phagocytophilum DNA Lyme Disease IgG Ab Lyme IgG (Western Blot) Lyme IgG 18 kDa Band Lyme IgG 23 kDa Band Lyme IgG 28 kDa Band Lyme IgG 30 kDa Band Lyme IgG 39 kDa Band Lyme IgG 41 kDa Band Lyme IgG 45 kDa Band Lyme IgG 58 kDa Band Lyme IgG 66 kDa Band Lyme IgG 93 kDa Band Lyme IgM Ab (WB) Lyme Disease IgM Ab Lyme IgM 23 kDa Band Lyme IgM 39 kDa Band Lyme IgM 41 kDa Band SARS-CoV-2, RNA, NAAT NEGATIVE Blood Type Antibody Screen 02/09/22 02/09/22 02/09/22 07:24 07:24 07:24 WBC 5.99 RBC 4.53 L Hgb 14.6 Hct 41.7 L MCV 92.1 MCH 32.2 MCHC 35.0 RDW Std Deviation 43.2 RDW Coeff of Kylah 12.8 Plt Count 145 MPV 12.0 H Immature Gran % (Auto) 0.2 Neut % (Auto) 54.3 Lymph % (Auto) 36.6 [place] % (Auto) 6.7 Eos % (Auto) 2.0 Baso % (Auto) 0.2 Neut # (Auto) 3.26 Lymph # (Auto) 2.19 [place] # (Auto) 0.40 Eos # (Auto) 0.12 Baso # (Auto) 0.01 Immature Gran # (Auto) 0.01 ESR PT 10.4 INR 1.0 APTT 25.0 PTT Ratio 0.9 Sodium Potassium Chloride Carbon Dioxide Anion Gap BUN Creatinine Est Cr Clr Drug Dosing Est GFR ( Amer) Est GFR (Non-Af Amer) BUN/Creatinine Ratio Glucose POC Glucose Estimat Average Glucose Hemoglobin A1c Calcium Magnesium Total Bilirubin AST ALT Alkaline Phosphatase Total Creatine Kinase Troponin I High Sens 5.1 C-Reactive Protein Total Protein Albumin Globulin Albumin/Globulin Ratio Triglycerides Cholesterol LDL Cholesterol, Calc VLDL Cholesterol, Calc HDL Cholesterol Cholesterol/HDL Ratio TSH Acetylchol Rcpt Block Ab Acetylchol Rcpt Bind Ab Anaplasma Smear A. phagocytophilum DNA Lyme Disease IgG Ab Lyme IgG (Western Blot) Lyme IgG 18 kDa Band Lyme IgG 23 kDa Band Lyme IgG 28 kDa Band Lyme IgG 30 kDa Band Lyme IgG 39 kDa Band Lyme IgG 41 kDa Band Lyme IgG 45 kDa Band Lyme IgG 58 kDa Band Lyme IgG 66 kDa Band Lyme IgG 93 kDa Band Lyme IgM Ab (WB) Lyme Disease IgM Ab Lyme IgM 23 kDa Band Lyme IgM 39 kDa Band Lyme IgM 41 kDa Band SARS-CoV-2, RNA, NAAT Blood Type Antibody Screen 02/09/22 02/09/22 02/09/22 07:24 07:24 07:24 WBC RBC Hgb Hct MCV MCH MCHC RDW Std Deviation RDW Coeff of Kylah Plt Count MPV Immature Gran % (Auto) Neut % (Auto) Lymph % (Auto) [place] % (Auto) Eos % (Auto) Baso % (Auto) Neut # (Auto) Lymph # (Auto) [place] # (Auto) Eos # (Auto) Baso # (Auto) Immature Gran # (Auto) ESR 5 PT INR APTT PTT Ratio Sodium 139 Potassium 4.0 Chloride 106 Carbon Dioxide 27 Anion Gap 6 BUN 24 H Creatinine 1.34 D Est Cr Clr Drug Dosing 76.2 Est GFR ( Amer) 69.6 Est GFR (Non-Af Amer) 60.1 BUN/Creatinine Ratio 17.9 Glucose 170 H POC Glucose Estimat Average Glucose Pending Hemoglobin A1c Pending Calcium 8.4 L Magnesium 2.0 Total Bilirubin 0.5 AST 17 ALT 19 Alkaline Phosphatase 64 Total Creatine Kinase Troponin I High Sens C-Reactive Protein Total Protein 6.0 Albumin 3.9 Globulin 2.1 L Albumin/Globulin Ratio 1.9 Triglycerides 102 Cholesterol 146 LDL Cholesterol, Calc 76 VLDL Cholesterol, Calc 20 HDL Cholesterol 50 Cholesterol/HDL Ratio 2.9 TSH Acetylchol Rcpt Block Ab Acetylchol Rcpt Bind Ab Anaplasma Smear A. phagocytophilum DNA Lyme Disease IgG Ab Lyme IgG (Western Blot) Lyme IgG 18 kDa Band Lyme IgG 23 kDa Band Lyme IgG 28 kDa Band Lyme IgG 30 kDa Band Lyme IgG 39 kDa Band Lyme IgG 41 kDa Band Lyme IgG 45 kDa Band Lyme IgG 58 kDa Band Lyme IgG 66 kDa Band Lyme IgG 93 kDa Band Lyme IgM Ab (WB) Lyme Disease IgM Ab Lyme IgM 23 kDa Band Lyme IgM 39 kDa Band Lyme IgM 41 kDa Band SARS-CoV-2, RNA, NAAT Blood Type Antibody Screen 02/09/22 02/09/22 02/09/22 11:21 12:22 12:22 WBC RBC Hgb Hct MCV MCH MCHC RDW Std Deviation RDW Coeff of Kylah Plt Count MPV Immature Gran % (Auto) Neut % (Auto) Lymph % (Auto) [place] % (Auto) Eos % (Auto) Baso % (Auto) Neut # (Auto) Lymph # (Auto) [place] # (Auto) Eos # (Auto) Baso # (Auto) Immature Gran # (Auto) ESR PT INR APTT PTT Ratio Sodium Potassium Chloride Carbon Dioxide Anion Gap BUN Creatinine Est Cr Clr Drug Dosing Est GFR ( Amer) Est GFR (Non-Af Amer) BUN/Creatinine Ratio Glucose POC Glucose 188 H Estimat Average Glucose Hemoglobin A1c Calcium Magnesium Total Bilirubin AST ALT Alkaline Phosphatase Total Creatine Kinase Troponin I High Sens 5.4 C-Reactive Protein Total Protein Albumin Globulin Albumin/Globulin Ratio Triglycerides Cholesterol LDL Cholesterol, Calc VLDL Cholesterol, Calc HDL Cholesterol Cholesterol/HDL Ratio TSH 1.836 Acetylchol Rcpt Block Ab Acetylchol Rcpt Bind Ab Anaplasma Smear A. phagocytophilum DNA Lyme Disease IgG Ab Lyme IgG (Western Blot) Lyme IgG 18 kDa Band Lyme IgG 23 kDa Band Lyme IgG 28 kDa Band Lyme IgG 30 kDa Band Lyme IgG 39 kDa Band Lyme IgG 41 kDa Band Lyme IgG 45 kDa Band Lyme IgG 58 kDa Band Lyme IgG 66 kDa Band Lyme IgG 93 kDa Band Lyme IgM Ab (WB) Lyme Disease IgM Ab Lyme IgM 23 kDa Band Lyme IgM 39 kDa Band Lyme IgM 41 kDa Band SARS-CoV-2, RNA, NAAT Blood Type Antibody Screen 02/09/22 02/09/22 02/09/22 12:22 12:22 16:22 WBC RBC Hgb Hct MCV MCH MCHC RDW Std Deviation RDW Coeff of Kylah Plt Count MPV Immature Gran % (Auto) Neut % (Auto) Lymph % (Auto) [place] % (Auto) Eos % (Auto) Baso % (Auto) Neut # (Auto) Lymph # (Auto) [place] # (Auto) Eos # (Auto) Baso # (Auto) Immature Gran # (Auto) ESR PT INR APTT PTT Ratio Sodium Potassium Chloride Carbon Dioxide Anion Gap BUN Creatinine Est Cr Clr Drug Dosing Est GFR ( Amer) Est GFR (Non-Af Amer) BUN/Creatinine Ratio Glucose POC Glucose 114 H Estimat Average Glucose Hemoglobin A1c Calcium Magnesium Total Bilirubin AST ALT Alkaline Phosphatase Total Creatine Kinase 133 Troponin I High Sens C-Reactive Protein < 0.50 Total Protein Albumin Globulin Albumin/Globulin Ratio Triglycerides Cholesterol LDL Cholesterol, Calc VLDL Cholesterol, Calc HDL Cholesterol Cholesterol/HDL Ratio TSH Acetylchol Rcpt Block Ab Pending Acetylchol Rcpt Bind Ab Pending Anaplasma Smear A. phagocytophilum DNA Lyme Disease IgG Ab Lyme IgG (Western Blot) Lyme IgG 18 kDa Band Lyme IgG 23 kDa Band Lyme IgG 28 kDa Band Lyme IgG 30 kDa Band Lyme IgG 39 kDa Band Lyme IgG 41 kDa Band Lyme IgG 45 kDa Band Lyme IgG 58 kDa Band Lyme IgG 66 kDa Band Lyme IgG 93 kDa Band Lyme IgM Ab (WB) Lyme Disease IgM Ab Lyme IgM 23 kDa Band Lyme IgM 39 kDa Band Lyme IgM 41 kDa Band SARS-CoV-2, RNA, NAAT Blood Type Antibody Screen 02/09/22 19:44 WBC RBC Hgb Hct MCV MCH MCHC RDW Std Deviation RDW Coeff of Kylah Plt Count MPV Immature Gran % (Auto) Neut % (Auto) Lymph % (Auto) [place] % (Auto) Eos % (Auto) Baso % (Auto) Neut # (Auto) Lymph # (Auto) [place] # (Auto) Eos # (Auto) Baso # (Auto) Immature Gran # (Auto) ESR PT INR APTT PTT Ratio Sodium Potassium Chloride Carbon Dioxide Anion Gap BUN Creatinine Est Cr Clr Drug Dosing Est GFR ( Amer) Est GFR (Non-Af Amer) BUN/Creatinine Ratio Glucose POC Glucose Estimat Average Glucose Hemoglobin A1c Calcium Magnesium Total Bilirubin AST ALT Alkaline Phosphatase Total Creatine Kinase Troponin I High Sens Pending C-Reactive Protein Total Protein Albumin Globulin Albumin/Globulin Ratio Triglycerides Cholesterol LDL Cholesterol, Calc VLDL Cholesterol, Calc HDL Cholesterol Cholesterol/HDL Ratio TSH Acetylchol Rcpt Block Ab Acetylchol Rcpt Bind Ab Anaplasma Smear A. phagocytophilum DNA Lyme Disease IgG Ab Lyme IgG (Western Blot) Lyme IgG 18 kDa Band Lyme IgG 23 kDa Band Lyme IgG 28 kDa Band Lyme IgG 30 kDa Band Lyme IgG 39 kDa Band Lyme IgG 41 kDa Band Lyme IgG 45 kDa Band Lyme IgG 58 kDa Band Lyme IgG 66 kDa Band Lyme IgG 93 kDa Band Lyme IgM Ab (WB) Lyme Disease IgM Ab Lyme IgM 23 kDa Band Lyme IgM 39 kDa Band Lyme IgM 41 kDa Band SARS-CoV-2, RNA, NAAT Blood Type Antibody Screen PG Care Time/CCT Total # of Minutes Spent Total Time Spent with Patient: Total time spent is greater than 50% in coordination of care (as documented) at patient's floor/unit and/or counseling patient: Coding Level of Care Code 13917 Subseq Hosp Care Lvl 3 Diagnoses Binocular vision disorder with diplopia H53.2 Suspected Lyme disease R68.89 Acute kidney injury N17.9 Diabetes mellitus, type 2 E11.9 Hyperlipidemia LDL goal <70 E78.5 Meniere's disease H81.[address] Z96.21
[2022-02-09] MEDS ORDERED: INSULIN GLARGINE SOLOSTAR 100 UNITS/ML 3 ML PEN SQ SCH ×3 (21:00)
[2022-02-09] MEDS ORDERED: PRAVASTATIN SOD 40 MG TAB PO SCH (21:00)
[2022-02-10] MEDS: cefTRIAXone SODIUM 2,000 MG in DEXTROSE 5% 50 ML IV SCH (02:17)
--- NOTE | 2022-02-10 06:44 | Electrocardiogram Report ---
Test Reason : Blood Pressure : / mmHG Vent. Rate : 080 BPM Atrial Rate : 080 BPM P-R Int : 196 ms QRS Dur : 088 ms QT Int : 360 ms P-R-T Axes : 064 055 059 degrees QTc Int : 415 ms Normal sinus rhythm Normal ECG No previous ECGs available Confirmed by Samuel Mota ([id number]) on 02/10/2022 6:44:17 AM Referred By: REFERRED SELF Confirmed By:Samuel Mota
[2022-02-10 07:47] LABS: BUN Creatinine Ratio 18.4 (10-20); Calcium 8.5 mg/dl (8.5-10.1); Creatinine Clr Calc Pharmacy 117.4 ml/min; Est GFR (African American) 114.2 ml/min; Est GFR (Non-African American) 98.5 ml/min; Potassium 3.9 mmol/L (3.5-5.1)
[2022-02-10 08:50] LABS: Estimated Average Glucose 154 mg/dl
[2022-02-10] MEDS: INSULIN ASPART PER UNIT SC SCH ×2 (08:55→12:47)
[2022-02-10] MEDS: ASPIRIN 81 MG ECTAB PO SCH (08:56)
--- NOTE | 2022-02-10 09:17 | Neurology Consultation ---
Date of Consultation February 10, 2022 Assessment & Plan (1) Right-sided fourth cranial nerve palsy: This patient appears to have a right sided 4th nerve palsy. I suspect an underlying vascular etiology, microvascular injury to the 4th nerve occurring in the context of insulin-dependent diabetes mellitus. His symptoms are stable to improved. Inflammatory markers are normal. Acetylcholine receptor antibodies are pending although I do not think his clinical presentation is consistent with myasthenia gravis. He does have an equivocal Lyme disease IgM antibody, Western blot is pending. Acute Lyme disease that is possible in spite of lack of other associated symptomatology. CT angiography adequately excludes an aneurysm. Furthermore, although the brain MRI sequences were distorted by his cochlear implant, many of the sequences adequately visualize the cavernous sinuses, midbrain, yvonne, and brainstem and do not reveal any obvious structural or inflammatory pathology. Unfortunately, the diffusion-weighted sequences were nondiagnostic. Nonetheless, his clinical presentation does not seem consistent with brainstem stroke given lack of other associated symptomatology. Agree with addition of aspirin 81 mg/day. Continue with ceftriaxone or other appropriate antimicrobial therapy until results of Western blot are available. Follow-up with results of acetylcholine receptor antibodies. Outpatient ophthalmology evaluation. Would consider prisms depending on extent of further improvement over the next few weeks. No further immediate recommendations at this time. Thank you for allowing me to participate in the care of this patient. 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 He complains of vertical double vision that improves with closing 1 eye or tilting his head to the left. The diplopia is worse with downgaze. He complains of mild right periorbital discomfort. Symptoms began 2 days ago, on February 08, in the evening and have been gradually improving although are still present this morning. He denies any vision loss, change in speech, significant headache, facial numbness, or weakness or numbness of the limbs. He denies any significant dizziness, vertigo, or difficulty walking. He denies a recent history of head trauma or signs or symptoms of infection such as fevers, chills, or myalgia. No known recent history of tick bite. Past medical history is notable for insulin-dependent diabetes mellitus for about 14 years, reportedly well controlled. Past medical history also notable for Mnire's disease for which she is prescribed triamterene hydrochlorothiazide and dyslipidemia for which she is prescribed pravastatin. He does not take aspirin or other blood thinners. No known history of significant cardiovascular disease. Patient exercises regularly, he does not abuse alcohol or tobacco products. He has never had similar symptoms in the past. Allergies Allergy/AdvReac Type Severity Reaction Status Date / Time Sulfa (Sulfonamide Allergy Hives Verified 02/08/22 20:45 Antibiotics) Home Medications Medication Instructions Recorded Confirmed Type insulin glargine 100 unit/mL 35 unit SUBCUT HS 05/19/19 02/08/22 History subcutaneous solution (Lantus U-100 Insulin) pravastatin 40 mg tablet 40 mg PO HS 05/19/19 02/08/22 History insulin lispro 100 unit/mL 10 - 15 unit SUBCUT AC 02/08/22 02/08/22 History subcutaneous pen triamterene 37.5 1 cap PO QAM 02/08/22 02/08/22 History mg-hydrochlorothiazide 25 mg capsule Patient History Medical History Asthma Chronic back pain Cochlear implant in place Diabetes mellitus, type 2 GERD (gastroesophageal reflux disease) Hearing deficit Herniated disc Hyperlipidemia LDL goal <70 Meniere's disease Vertigo LAST 2 MONTHS AGO Surgical History History of colonoscopy History of tooth extraction Family History Father Diabetes Brother Diabetes Social History Smoking Status: Never smoker Second Hand Exposure: No; Hx Alcohol Use: Yes Alcohol type: hard liquor Hx Substance Use: No Preferred Language: [place] Communication Ability: Effective [employer] Technical Director Required: No Beliefs That Will Affect Care: None Current Living Situation: Spouse Other Information That Helps Us Care for You: No Feels Safe at Home: Yes Safety Concerns: Feels Safe At This Time Assistive Devices: Glasses and Hearing Aid - Left Assistive Devices Comment: Choclear implant in right ear Review of Systems Constitutional: no fever and no chills Eyes: as per Subjective / HPI and + diplopia; no blind spots and no eye pain Ear, Nose, Mouth, Throat: + hearing loss; no ear pain and no dizziness Respiratory: no cough and no dyspnea Cardiovascular: no chest pain and no palpitations Gastrointestinal: no constipation and no diarrhea/loose stools Genitourinary: no urinary incontinence or no urinary urgency Musculoskeletal: no myalgia, no muscle weakness and no muscle atrophy Integumentary: no rash and no lesions Neurologic: as per Subjective / HPI; no gait abnormality, no paresthesia, no tremor(s), no seizure-like activity, no syncope, no headache(s), no confusion and no memory loss Psychiatric: no behavioral changes, no depression, no abnormal sleep pattern and no anxiety Hematologic / Lymphatic: no easy bruising and no lymphadenopathy Exam (Neuro) Constitutional: well developed and well nourished; no acute distress Eyes: normal visual downing by confrontation, PERRL and normal accommodation; + EOM not intact, no fundoscopic abnormality, no nystagmus and no papilledema Cardiovascular: Vessels: normal carotid upstroke; no carotid bruit Neurologic: Oriented to:: Person, Place and Time Memory: Short Term Intact and Remote Intact Attention: Span Intact and Concentration Intact Language: Naming Objects and Repeating Phrases Speech Fluency: negative Dysarthria Speech Aphasia: negative Aphasia Fund of Knowledge: Current Events, Past History and Vocabulary Cranial Nerves: Normal II (Visual downing full to confrontation, visual acuity normal), V (Facial sensation intact), VII (There is no facial droop or weakness), VIII (Hearing intact), IX, X (Palate elevates to midline), XI (Shoulder shrug intact) and XII (Tongue protrudes to midline); Abnorm III, IV, (Pupils equal round reactive to light and accommodation, eye movements normal) Motor Strength: Normal Lower Extremities and Normal Upper Extremities; negative Pronator Drift Motor Tone: Normal Lower Extremities and Normal Upper Extremities Muscle Bulk/Involuntary Movements: No Involuntary Movements; negative Muscle Atrophy Sensation: Light Touch Intact, Pain/Temperature Intact, Vibration Intact and Proprioception Intact Coordination: Normal; negative Limited Balance, Dysdiadochokinesia, Finger-Nose Abnormal or Heel-Cochran Abnormal Deep Tendon Reflexes: Rt Triceps: 2+, Lt Triceps: 2+, Rt Biceps: 2+, Lt Biceps: 2+, Rt Brachioradialis: 2+, Lt Brachioradialis: 2+, Rt Patellar: 2+, Lt Patellar: 2+, Rt Ankle: 2+ and Lt Ankle: 2+ Special Tests: negative Babinski Present Gait: Normal Station and Gait Details: Patient's vertical diplopia worsens with downgaze. The rotational or torsional diplopia worsens with head tilt to the right, and improves with head tilt to the left. There is no ptosis. There is no nystagmus. Results & Data ([facility]) Vital Signs (Past 12 Hours) Vital Signs Temp Pulse Resp BP Pulse Ox 02/10/22 07:15 36.6 C 78 18 125/69 95 02/10/22 03:39 36.9 C 57 L 16 139/62 96 02/09/22 23:42 36.8 C 73 18 123/70 95 Laboratory Results WBC 5.99, hemoglobin 14.6, hematocrit 41.7, MCV 92.1, platelet count 145, ESR 5, sodium 140, potassium 3.9, BUN 16, creatinine 0.87, glucose 158, [id number] glucose 181, hemoglobin A1c 7.0, calcium 8.5, total CK1 33, high-sensitivity troponin 4.4, C-reactive protein less than 0.50, triglycerides 102, cholesterol 146, LDL 76, VLDL 20, HDL 50, TSH 1.836, acetylcholine receptor antibodies (blocking and binding) pending, Lyme Western blot pending. Diagnostic Findings CT of the head negative for hemorrhage or acute process although there is artifact from patient's right-sided cochlear implant. CTA of the head and neck unremarkable, no aneurysm, occlusion, or dissection. Gadolinium enhanced brain MRI technically limited due to significant artifact from patient's right-sided cochlear implant. However, axial T1 and T2 sequences do not reveal any obvious pathology within the brainstem, yvonne, or midbrain. The diffusion-weighted sequences are nondiagnostic. Although the gadolinium enhanced sequences are distorted, there is no obvious evidence of abnormal postcontrast enhancement or abnormalities within the cavernous sinuses, midbrain, yvonne or brainstem. I reviewed the images as well as the radiologist interpretation of this test. An echocardiogram revealed normal left ventricular size and systolic function, ejection fraction 60 to 65%, no regional wall motion abnormalities, mild concentric left ventricular hypertrophy. No significant valvular abnormalities. No obvious right to left interatrial shunt following injection of agitated saline. Left atrial size normal. Right atrial size normal. Electrocardiogram revealed a normal sinus rhythm, 80 bpm. Coding Level of Care Code 67400 Initial Inpt Care Lvl 3 Diagnoses Right-sided fourth cranial nerve palsy H49.11
[2022-02-10 09:34] LABS: Appearance Urine Clear (Clear); Bilirubin Urine Negative (Negative); Blood Urine Negative (Negative); Color Urine Yellow; Glucose Urine UA 3+ (Negative); Ketones Urine Negative (Negative); Leukocyte Esterase Urine Negative (Negative); Nitrite Urine Negative (Negative); Protein Urine Negative (Negative); Urobilinogen Urine Negative (Negative)
[2022-02-10] MEDS ORDERED: STROKE PATIENT DISCHARGE STA (12:30)
--- NOTE | 2022-02-10 12:54 | Discharge Summary ---
Date of Service date of admission - February 08, 2022 date of discharge - February 10, 2022 Admission HPI Per Admitting Provider The patient is a 51-year-old male with a past medical history including diabetes mellitus, hyperlipidemia and hypertension. He reports that his vision initially seemed blurry, and then later developed a binocular vertically displaced diplopia. He notes the vision in his left eye is worse and the image appears to be larger than the image in his right eye. He does have a cochlear implant in his right ear, associated with known Mnire's disease, in which he has had no problems with. He denies any loss of peripheral vision, and primarily report reports decreased vision when he look straight ahead in his left eye compared to the right. He has no other associated neurologic symptoms. He has not had the symptoms before. He denies any recent travels or sick exposures. He reports he has had some bites on his legs, but has not noted any ticks. 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 Discharge Exam gen - WD, WN, no acute distress face - no droop HENT - cochlear implant right side of head; MMM, no oral cavity lesions; tongue midline; nose clear eyes - PERRL, anicteric sclera; with extraocular movements - RIGHT CN 4 palsy; no ptosis neck - no lymph nodes or mass, supple heart - RRR, s1 s2, no murmur lungs - CTA b/l abd - soft NT ND BS+ ext - no edema, pulses 2+ b/l neuro - strength 5/5 x 4 exts; finger/nose/finger without ataxia b/l hands; no sensory impairment to light touch x 4 exts; DTRs upper and lower extremities 2+ b/l CN - 3-12 intact except there is evidence of right-sided CN 4 palsy -- looking straight ahead shows a right pupil that is turned upwards and slightly outward (hypertropia and extorsion) skin - no rash Discharge Data Allergies Allergy/AdvReac Type Severity Reaction Status Date / Time Sulfa (Sulfonamide Allergy Hives Verified 02/08/22 20:45 Antibiotics) Consultations [facility] Neurology - Jonas Villegas MD PT, OT Speech therapy Procedures Performed Echocardiogram - * EF 60-65% * normal valve function * mild LVH * no PFO/shunt Ordered Studies Head CT 02/08/22 20:38 CT head/brain wo con CLINICAL HISTORY: 51 years-old Male with Stroke Like Symptoms. Acute strokelike symptoms with visual disturbances TECHNIQUE: Multiple axial CT images of the head were obtained without contrast. A dose lowering technique was utilized adhering to the principles of ALARA. COMPARISON: CTA head neck of same day, brain MRI 03/28/2014 FINDINGS: No acute intracranial hemorrhage, midline shift, intracranial mass, hydrocephalus, territorial ischemia or abnormal extra-axial collection. Streak artifact from a right-sided cochlear implant limits the study. Right-sided partial mastoidectomy. The calvarium is intact. Minimal mucosal thickening of the right maxillary sinus. Unremarkable soft tissues. IMPRESSION: 1. No acute intracranial abnormality identified. 2. Artifact from the patient's right-sided cochlear implant limits the study. ACT 112: Negative or not required by law. The above report was generated using voice recognition software. It may contain grammatical, syntax or spelling errors. Electronically signed by: Alfredo Fuentes M.D. 02/08/2022 9:07 PM Head CTA 02/08/22 20:38 CT angio neck with con, CT angio head w con CLINICAL HISTORY: 51 years-old Male with Stroke Like Symptoms. Acute strokelike symptoms COMPARISON STUDY: Head CT of same day TECHNIQUE: Following the IV administration of 120 mL of Optiray, CT angiogram of the head and neck was performed from the aortic arch to the skull apex. Images are reviewed in the axial, sagittal, and coronal planes. 3-D MIPS images are created and assessed. IV contrast was administered without complication. All measurements were calculated based on NASCET criteria. A dose lowering tech nique was utilized adhering to the principles of ALARA. CT DOSE: 1257.42 mGy.cm FINDINGS: Three-vessel morphology of the thoracic aortic arch. Patency of the innominate and imaged subclavian arteries. Study is mildly motion degraded. The common and internal carotid arteries are patent. The middle and anterior cerebral arteries are patent. The vertebral arteries, basilar and posterior cerebral arteries are widely patent. The cerebral venous sinuses are patent. There is no abnormal intracranial enhancement. Streak artifact from the patient's right-sided cochlear implant limits the study. Lung apices are clear. No pneumothorax. Mild polypoid mucosal thickening of the right maxillary sinus. Streak artifact from dental amalgam hardware. Degenerative changes of the imaged cervical spine. Right-sided partial mastoidectomy. IMPRESSION:Unremarkable CTA of the head and neck. ACT 112: Negative or not required by law. The above report was generated using voice recognition software. It may contain grammatical, syntax or spelling errors. Electronically signed by: Alfredo Fuentes M.D. 02/08/2022 9:15 PM Neck CTA 02/08/22 20:38 CT angio neck with con, CT angio head w con CLINICAL HISTORY: 51 years-old Male with Stroke Like Symptoms. Acute strokelike symptoms COMPARISON STUDY: Head CT of same day TECHNIQUE: Following the IV administration of 120 mL of Optiray, CT angiogram of the head and neck was performed from the aortic arch to the skull apex. Images are reviewed in the axial, sagittal, and coronal planes. 3-D MIPS images are created and assessed. IV contrast was administered without complication. All measurements were calculated based on NASCET criteria. A dose lowering technique was utilized adhering to the principles of ALARA. CT DOSE: 1257.42 mGy.cm FINDINGS: Three-vessel morphology of the thoracic aortic arch. Patency of the innominate and imaged subclavian arteries. Study is mildly motion degraded. The common and internal carotid arteries are patent. The middle and anterior cerebral arteries are patent. The vertebral arteries, basilar and posterior cerebral arteries are widely patent. The cerebral venous sinuses are patent. There is no abnormal intracranial enhancement. Streak artifact from the patient's right-sided cochlear implant limits the study. Lung apices are clear. No pneumothorax. Mild polypoid mucosal thickening of the right maxillary sinus. Streak artifact from dental amalgam hardware. Degenerative changes of the imaged cervical spine. Right-sided partial mastoidectomy. IMPRESSION:Unremarkable CTA of the head and neck. ACT 112: Negative or not required by law. The above report was generated using voice recognition software. It may contain grammatical, syntax or spelling errors. Electronically signed by: Alfredo Fuentes M.D. 02/08/2022 9:15 PM Brain MRI 02/08/22 21:31 MRI OF THE BRAIN COMBO CLINICAL HISTORY: Diplopia. COMPARISON STUDY: CT of the brain dated 02/08/2022. TECHNIQUE: MRI of the brain was performed utilizing various T1 and T2-weighted sequences in the axial, sagittal, and coronal planes. Contrast-enhanced sequences were acquired following the administration of 9 cc of Gadavist. The examination is severely degraded by susceptibility artifact from metallic device overlying the right convexity. FINDINGS: Brain parenchyma: The brain parenchyma is normal in appearance. There is no hemorrhage or mass effect. There is no restricted diffusion identified typical for acute ischemia. Note that the right hemisphere is complete obscured on the diffusion-weighted sequence. There is no evidence of enhancing mass lesion on the postcontrast images. Yip-white matter differentiation is preserved. No ext ra-axial fluid collection is seen. The cerebellar tonsils are normal in configuration. Ventricles, sulci, and cisterns: Normal in configuration. Pituitary and sella: Unremarkable. Intracranial vasculature: Normal flow voids are maintained at the skull base. Orbits: The bony orbits are grossly intact. Orbital contents are normal in appearance. Sinuses and mastoids: There is moderate mucosal thickening in the right maxillary antrum. The remaining paranasal sinuses are clear. The left mastoid air cells are well pneumatized. The right mastoid air cells cannot be evaluated. Calvarium: Unremarkable. Cervical cord: Partially visualized cervical spinal cord is normal in morphology and signal intensity. IMPRESSION: No acute intracranial abnormality is identified noting a severely degraded examination. An acute infarct cannot be excluded on this examination. Clinical correlation will be required. ACT 112: Negative or not required by law. Electronically signed by: Duncan Thompson M.D. 02/09/2022 6:21 AM Hospital Course (1) Right-sided fourth cranial nerve palsy: As the patient's hospitalization ensued it became clear that the patient's vertical double vision was due to a right-sided cranial nerve 4 palsy. This cranial neuropathy was likely due to a small vessel stroke in the setting of long-standing diabetes, hyperlipidemia, etc. Although MRI brain was negative his clinical picture was consistent with a microvascular event. Ophthalmology (via verbal communication) also suspected a 4th cranial nerve palsy. Additional stroke work-up including CTA head/neck, telemetry, and echocardiogram were normal. Specifically, CTAs did NOT show stenosis, aneurysm, or dissection, echo did not reveal a thrombus or PFO, and no a.fib was seen on telemetry. Sed rate/crp were wnl. CPK was wnl. Work-up for myasthenia gravis with acetylcholine receptor antibody testing was dispatched prior to discharge; however, myasthenia gravis was not suspected. Aspirin 81mg daily was added for secondary prevention. Lipid profile showed LDL of 76. Although the patient takes pravastatin 40mg daily he will consider changing to evidence-based therapy with lipitor or crestor. He plans to discuss this with his PCP. HbA1C was 7%, and blood pressures were well-controlled during the hospitalization. He was cleared by PT/OT for home with his family. 24-hours post-discharge the patient will follow-up with Dr Jonel Valdivia, ophthalmology, for a full evaluation. He will likely need a prism cover test, etc. Patient was instructed not to drive until cleared by ophthalmology and/or his PCP. The patient had an equivocal IgM lyme screening test. IgG was negative. Although not typical for Lyme it is theoretically possible that Lyme could have caused the 4th nerve palsy. As a precautionary measure he received IV rocephin while here, and was transitioned to oral doxycycline at discharge. Lyme Western blot was pending at time of discharge home. If Western blot returns negative he can stop the doxycycline. (2) Binocular vision disorder with diplopia: Vertical diplopia 2nd to right-sided cranial nerve 4 palsy. 2nd to microvascular stroke. See #1 above. MRI brain negative for acute findings/stroke. CTA head/neck without stenosis, aneurysm or dissection. Echo without thrombus or obvious PFO. Tele without a.fib/flutter. (3) Suspected Lyme disease: Question of early stage Lyme (equivocal IgM, negative IgG). Typically with PIECE JOBBER lyme the IgG is positive, however. Lyme typically causes a Hatfield's palsy but theoretically could infect any cranial nerve. Zalz-wrr-yvde Lyme rarely impacts the other CN's outside of CN VII. With that side it was reasonable to continue IV rocephin while inpatient, and he was sent home with oral doxycycline while awaiting the Lyme Western blot results to return. Anaplasmosis DNA was also pending at time of discharge. (4) Acute kidney injury: Creatinine 1.77 upon admission, with baseline 1.1 Triamterene HCTZ was held, and he was given IV fluids. Creatinine improved quickly with such, and creatinine was 0.87 at time of discharge. Etiology not full certain but suspect pre-renal (glucose was high upon admission lending itself to dehydration, possible poor liquid intake, chronic diuretic usage, etc). U/a did not show casts or other abnormalities. CPK was wnl. (5) Diabetes mellitus, type 2: Hba1c was 7% He will continue his usual regimen of Lantus + novolog with meals. (6) Hyperlipidemia LDL goal <70: LDL was 76 on lipid profile check while hospitalized. HDL was 50. Pre-admission he had been taking Pravastatin 40mg daily. He will consider changing the pravastatin to crestor or lipitor (evidence-based therapy). He plans to discuss this with his PCP at time of hospital follow-up. (7) Meniere's disease: No noted issues while hospitalized. No vertigo, etc. He remains on triamterene/HCTZ daily. Although the diuretic may have contributed to his JADE I believe the benefits of the diuretic far outweigh its risks. He will continue the triamterene/HCTZ as previous. (8) Cochlear implant in place: Right-sided. Total Time Total Time Spent Total Time Spent (In Minutes): 45 Discharge Plan Discharge Items Patient Disposition: Home - Self-Care Reason For Visit: Double Vision Discharge Diagnosis: 1. Double vision due to stroke of cranial nerve 4 in the right eye 2. Positive Lyme Disease screening test - confirmatory testing is pending 3. Acute kidney injury (rise in creatinine) - admission creatinine 1.7, discharge creatinine 0.8 Activity: Per Instructions section Driving/Machine Use: No driving until cleared by ophthalmology Non-emergency contact: Primary Care Provider and Special Agent [employer] Call non-emergency contact if: you have any medication questions and your symptoms worsen Follow-up/Referrals: Tanja Jefferson MD [Primary Care Provider] - 02/22/22 8:50 am (Please follow up with Dr. Jefferson on Thursday02/22/22 at 8:50 am. Please arrive to the office at 8:35 am for your appointment. If you are unable to keep this appointment, please call the office to reschedule at [phone].) Jonel Valdivia MD [Surgeon] - 02/11/22 10:15 am (Please follow up with Dr. Valdivia tomorrow Thursday02/11/22 at 10:15 am. Please arrive to the office at 10:00 am for your appointment. If you are unable to keep this appointment, please call the office to reschedule at [phone]. ) Diet: Carb Consistent or DM2 and Low Sodium (2gm) Addtl Attending Provider Instructions: Dr Stephen, You were hospitalized after developing double vision and blurry vision. Initial CT head and CTA head/neck were all normal. Specifically, no bleeding was found, and the blood vessels of the head and neck did not show any blockages or aneurysms. MRI brain did not show any old or new stroke. However, we were still suspicious that a tiny stroke affecting one of the nerves controlling your eye movements had occurred. You had noted that the right eye did not appear normal. Putting everything together - your concerns about the right eye, speaking with ophthalmology, and consulting [facility]rology - it was determined that you had a cranial nerve 4 palsy that was causing the double vision. It is likely that a small stroke of the nerve caused the palsy and hence the double vision. It is possible, but less likely, that Lyme disease infection has caused this. A confirmatory Lyme test is pending at this time. Dr Jonas Villegas from [facility] neurology saw you in consult and recommended ongoing use of your cholesterol medication and starting aspirin 81mg once daily to prevent a future stroke. You will need to see the nickel plater kobi as well for a full eye exam. Finally, your kidney function improved very nicely with IV fluids alone. You likely had an element of dehydration upon admission that caused this. Recommendations - 1. take nous-kmn-olqgrrk aspirin 81mg once daily. 2. take doxycycline 100mg twice daily, first dose in the AM of 02/11/22, in the event you do indeed have Lyme disease. I will contact you with your final Lyme testing. Prescription sent to [facility] for you. If the aspirin with doxycycline causes stomach upset, heartburn, etc please take iups-ulc-ejabwau prilosec or pepcid. 3. please speak to Dr Jefferson about changing your pravastatin to either lipitor or crestor. 4. your hemoglobin a1c returned at 7%. Excellent work on your diabetes! 5. your cholesterol panel showed - * total cholesterol 146 * LDL cholesterol 76 * HDL cholesterol 50 * triglycerides 102 6. your sed rate, crp, and TSH were all normal. Your echocardiogram showed normal heart function, no blood clots in the heart, and normal valve function. Your telemetry monitoring was normal. 7. please take it easy for the remainder of the week. No strenuous, physical activities. No driving at this time. The nickel plater can tell you when you can return to driving and other activities. 8. eye patch as needed and/or desired to extinguish the double vision. Follow-up - see separate section Best wishes for a speedy recovery and take good care! Rick Foster Field Instructor Provider Instructions: Stroke Information - Risk Factors for Stroke: You can reduce your chances of stroke by working with your medical provider to adopt a healthy lifestyle. Some specific ways to lower your chance of stroke are: * If you are a smoker, now is the time to stop smoking cigarettes * If you are diabetic, improve the control of your blood sugars * Avoid excessive amounts of alcohol * Control high blood pressure * Lose weight if you are overweight * Be sure to lead an active lifestyle * Eat a healthy diet low in salt, cholesterol and fat You should know about other risk factors for stroke that you are unable to control. These include: * Age 55 years or older * Male gender * Certain racial groups: , or / * Family History of Stroke, Mini stroke or Heart Attack * Sickle Cell Disease Who to Call and When: Medical Emergencies: Call 911 immediately if you experience any of the following warning signs and symptoms of Stroke: * Sudden numbness or weakness of the face, arm or leg, especially on one side of the body * Sudden confusion, trouble speaking or understanding * Sudden trouble seeing in one or both eyes * Sudden trouble walking, dizziness, loss of balance or coordination * Sudden severe headache with no cause Do not delay calling 911 if you experience any warning signs or symptoms of a stroke. Delay in seeking medical attention may affect what treatments can be given to you. . Pending Studies at Discharge: Yes Studies:: Blood work to fully exclude myasthenia gravis as the cause of your double vision. Lyme western blot confirmatory testing. Stand-Alone Forms: Medications to Prevent Stroke, [facility] SavySwap, Smoking Cessation Medications and DC Order Prescriptions: New aspirin 81 mg Tablet,Delayed Release (Dr/Ec) 81 mg PO QAM Qty: 90 RF: 3 doxycycline hyclate 100 mg tablet 100 mg PO BID 14 Days Qty: 28 RF: 1 Continued Lantus U-100 Insulin 100 unit/mL Solution 35 unit SUBCUT HS RF: 0 pravastatin 40 mg Tablet 40 mg PO HS RF: 0 triamterene-hydrochlorothiazid 37.5-25 mg capsule 1 cap PO QAM RF: 0 insulin lispro 100 unit/mL insulin pen 10 - 15 unit SUBCUT AC RF: 0 Discharge Orders: Discharge Order (Routine); Ordered 02/10/22 Ordered By: Rick Arredondo/Other Patient Handouts: Managing Type 2 Diabetes, Symptoms of Stroke, What Is Ischemic Stroke?, Stroke: Resources and Support, Stroke: Self-Care Admission Data Admit Date/Time: 02/08/22 23:18 Attending Provider: Rick Dorsey Admit Provider: Gary Carnes Primary Care Provider: Tanja Jefferson Other Providers: Gary Carnes ; Tio Mancia Other Interventions: Discharge Summary Assessment (RN) Last Done: 02/10/22 13:13 Coding Level of Care Code D/C DAY MANAGEMENT >30 MINS Diagnoses Binocular vision disorder with diplopia H53.2 Suspected Lyme disease R68.89 Acute kidney injury N17.9 Diabetes mellitus, type 2 E11.9 Hyperlipidemia LDL goal <70 E78.5 Meniere's disease H81.[address] Z96.21 Right-sided fourth cranial nerve palsy H49.11
--- NOTE | 2022-02-10 13:56 | Pharmacy Report ---
Pharmacist Stroke Counseling - Date of Service February 10, 2022 - Scope: Pharmacy has been consulted to provide medication discharge counseling for this patient admitted with ischemic stroke as per the Pharmacist Discharge Counseling for Stroke Patients Protocol. - Medications on Discharge: Home Medications Medication Instructions Recorded Confirmed insulin glargine 100 unit/mL 35 unit SUBCUT HS 05/19/19 02/08/22 subcutaneous solution (Lantus U-100 Insulin) pravastatin 40 mg tablet 40 mg PO HS 05/19/19 02/08/22 insulin lispro 100 unit/mL 10 - 15 unit SUBCUT AC 02/08/22 02/08/22 subcutaneous pen triamterene 37.5 1 cap PO QAM 02/08/22 02/08/22 mg-hydrochlorothiazide 25 mg capsule New Rx's Medication Instructions Recorded aspirin 81 mg tablet,delayed 81 mg PO QAM #90 tab 02/10/22 release doxycycline hyclate 100 mg tablet 100 mg PO BID 14 Days #28 tab 02/10/22 - Action: The above medications, specifically ones for stroke treatment/prophylaxis, have been reviewed in detail with the patient and/or patient mill representative(s) prior to discharge. This includes indication, common adverse reactions, drug interactions, and medication administration. Medication counseling has been employed using the teach-back method to ensure understanding. - Outcome: The patient and/or patient mill representative(s) have demonstrated understanding of the medications. 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 Please call [phone] with any additional questions
[2022-02-12 08:19] LABS: 18KDIGG Band NON-REACTIVE; 23KDIGG Band NON-REACTIVE; 23KDIGM Band NON-REACTIVE; 28KDIGG Band NON-REACTIVE; 30KDIGG Band NON-REACTIVE; 39KDIGG Band NON-REACTIVE; 39KDIGM Band NON-REACTIVE; 41KDIGG Band NON-REACTIVE; 41KDIGM Band NON-REACTIVE; 45KDIGG Band NON-REACTIVE; 58KDIGG Band NON-REACTIVE; 66KDIGG Band NON-REACTIVE; 93KDIGG Band NON-REACTIVE; Lyme Antibodies, WB IgG NEGATIVE (NEGATIVE); Lyme Antibodies, WB IgM NEGATIVE (NEGATIVE)
[2022-02-14 19:11] LABS: Acetylcholine Recept Blocking <15 (<15); Receptor Binding Ab <0.30 nmol/L
== END 2022-02-10 14:49 | disposition home or self-care (01) | DRG 65 ==
LOC: ED 20:13 → SUATTDRO 23:18 → 2E 23:18